=== PATIENT | male | born 1955 | race Caucasian/White ===

== ENCOUNTER 2020-11-04 14:57 | Inpatient (IN) | payer OTHER ==
--- NOTE | 2020-11-04 16:08 | RAD REPORT ---
EXAM DESCRIPTION: RAD - Chest Single View - 11/04/2020 3:39 pm CLINICAL HISTORY: DYSPNEA, weakness, loss of taste and smell, loss of appetite COMPARISON: Two view chest November 2019 TECHNIQUE: AP portable chest image was obtained 11/04/2020 3:39 pm . FINDINGS: Diaphragm is flattened. Patient has extensive cystic cavitary changes in each apex. Findin gs on the right are not substantially different. Air-filled cavity component has enlarged in the left apex since November 2019. There is now a dense area of opacification in the lateral mid left lung field. There is associated in terstitial stranding present. Heart size is normal. No measurable pleural effusion and no pneumothora x. No acute bony abnormality seen. No acute aortic findings suspected. IMPRESSION: Large consolidated mass density lateral mid left lung field. This is superimposed on sev ere fibro emphysematous changes to the chest. Community-acquired bacterial pneumonia or chest malignancy would be the primary considerations. Patte rn is not typical for a COVID-19 pneumonia.
[2020-11-04] MEDS ORDERED: PIPER/TAZO/NS 3.375gm 3.375 GM/100 ML BAG ONE (16:37)
[2020-11-04 16:44] LABS: Absolute Lymphocytes (CBC) 0.3 K/uL (0.7-4.9); Basophils % 0.2 % (0-1.3); Hematocrit 43.3 % (39.6-49.0); Lymphocytes % 1.7 % (15.3-44.8); MPV 7.6 fL (7.6-11.3); RBC Red Blood Cell Count 4.69 M/uL (4.33-5.43)
[2020-11-04 16:48] LABS: Protime INR 1.08
[2020-11-04 17:11] LABS: ALT/SGPT 8 U/L (12-78); AST/SGOT 19 U/L (15-37); Albumin 1.7 g/dL (3.4-5.0); Alkaline Phosphatase 79 U/L (45-117); BUN Blood Urea Nitrogen 16 mg/dL (7-18); Bicarbonate 28 mmol/L (21-32); Bilirubin Direct 0.3 mg/dL (0-0.2); Bilirubin Total 0.6 mg/dL (0.2-1.0); Ferritin 2228.2 ng/mL (26-388); Glucose Level 88 mg/dL (74-106); Potassium 3.4 mmol/L (3.5-5.1); Protein, Total 5.8 g/dL (6.4-8.2); Sodium Level 129 mmol/L (136-145); Troponin (Emerg Dept Use Only) 0.08 ng/mL (0.0-0.045)
--- NOTE | 2020-11-04 18:04 | RAD REPORT ---
EXAM DESCRIPTION: CT - Thorax W/ Con - 11/04/2020 5:35 pm CLINICAL HISTORY: dyspnea with significant lung changes COMPARISON: CT-LOW DOSE CT CHEST SCREENING dated 12/31/2013; CTANGIO CHEST dated 02/01/2010; Chest Singl e View dated 11/04/2020 TECHNIQUE: Dynamically enhanced 5 mm thick images of the chest were obtained during administration o f 100 mL non-ionic IV contrast. All CT scans are performed using dose optimization technique as appropriate and may include automated exposure control or mA/KV adjustment according to patient size. FINDINGS: Patient has a baseline of severe progressive emphysema change with numerous large air-fill ed cystic cavities in the upper lung west up to 11 cm in diameter. Thickened irregular septations a re present throughout. There is an air-fluid level and a large cystic cavity in the left apex. Bronch iectasis changes are present in the mid right lung field lung with a loculated pleural effusion new t he lateral mid and lower right lung field. There is a large irregular masslike consolidation in the m id and lower left lung field. Within this dense mass are numerous small cystic cavities or pneumatoce les. Margins are irregular. Enhancing vessels traverse through the mass. Opacification extends from t he lateral pleural margin to the perihilar region. In addition there are several ground-glass opacities present in the lower left lung field. No pneumot horax. No pleural based mass. No chest wall mass or abnormal axillary lymphadenopathy. Nonspecific small mediastinal lymph nodes are present without bulky mediastinal lymphadenopathy. Aorta and pulmonary arterial tree enhance normally. IMPRESSION: Large consolidated mass in the mid and lower left lung field with air bronchograms and n umerous pneumatoceles. Multiple small nonspecific mediastinal lymph nodes are present. Left lung field findings are superimposed on severe cystic emphysema changes with large thickly septa maureen cystic cavities in the upper lung west. No pulmonary emboli. A few scattered ground-glass opacities are present. The large left mass is suspicious for a bacterial pneumonia. This would be an atypical presentation f or COVID-19 pneumonia. Patient could have concurrent TB or fungal infections. Malignant etiology for the left lung mass is not excluded.
[2020-11-04] MEDS ORDERED: ENOXAPARIN 60 MG/0.6 ML SQ ONE (18:08)
[2020-11-04 19:04] LABS: SARS-COV-2 RT PCR NEGATIVE (NEGATIVE)
[2020-11-04] MEDS ORDERED: NA CHLORIDE 0.9% 2,000 ML ONE (19:07)
--- NOTE | 2020-11-04 20:07 | ER ---
Nurse's Notes [facility] Name: Moses Kern Age: 65 yrs Sex: Male : 1955 Arrival Date: 11/04/2020 Time: 15:11 Bed 7 Private MD: Diagnosis: Severe sepsis;Pneumonia due to other specified bacteria;Atrial fibrillation and flutter Presentation: 11/04 15:11 Chief complaint: Chief complaint: EMS states: called EMS due pt c/o of weakness. zb pt c/o of weakness, loss of taste and smell, nausea, loss of appetite, denies SOB or coughing. RR upper 20's. HR 112, saturation at 80's on arrival. sx first began on 28 of October after patient spending [place] with family. Coronavirus screen: Client presents with at least one sign or symptom that may indicate coronavirus-19. Standard/surgical mask placed on the client. Provider contacted for isolation considerations. Ebola Screen: No symptoms or risks identified at this time. Initial Sepsis Screen: Does the patient meet any 2 criteria? RR > 20 per min. HR > 90 bpm. Does the patient have a suspected source of infection? Yes: Other: possible covid. Risk Assessment: Do you want to hurt yourself or someone else? Patient reports no desire to harm self or others. Onset of symptoms was October 28, 2020. Care prior to arrival: Medication(s) given: Normal saline infusion, 250ml bolus. 15:11 Acuity: DEBRA 3 zb 15:11 Method Of Arrival: EMS: [facility] zb Historical: - Allergies: 15:27 No Known Allergies; zb - Home Meds: 15:26 Albuterol Inhl [Active]; Zinc Sulfate Oral [Active]; Vitamin C Oral [Active]; vitamin A zb Oral [Active]; Vitamin D Oral [Active]; - PMHx: 15:26 COPD; zb - PSHx: 15:26 None; zb - Immunization history:: Adult Immunizations up to date. - Social history:: Smoking status: Patient/guardian denies using tobacco, the patient reports quitting approximately 1 years ago. Screenin:27 Abuse screen: Denies threats or abuse. Denies injuries from another. Nutritional zb screening: No deficits noted. Tuberculosis screening: No symptoms or risk factors identified. Fall Risk None identified. Assessment: 15:45 General: Appears in no apparent distress. comfortable, Behavior is calm, cooperative, zb appropriate for age. Pain: Denies pain. Neuro: Level of Consciousness is awake, alert, obeys commands, Oriented to person, place, time, situation. Cardiovascular: Capillary refill < 3 seconds in bilateral fingers Patient's skin is warm and dry. Respiratory: Airway is patent Respiratory effort is even, unlabored, Respiratory pattern is tachypnea. Respiratory: Reports shortness of breath at rest Breath sounds are diminished bilaterally. the patient has mild shortness of breath. GI: Patient currently denies diarrhea. : No signs and/or symptoms were reported regarding the genitourinary system. EENT: No signs and/or symptoms were reported regarding the EENT system. Derm: Skin is intact, is healthy with good turgor, Skin is dry, Skin is normal, Skin temperature is warm. Musculoskeletal: Circulation, motion, and sensation intact. Capillary refill < 3 seconds, in bilateral fingers. Range of motion: intact in all extremities. 16:45 Reassessment: Patient appears in no apparent distress at this time. Patient and/or zb family updated on plan of care and expected duration. Pain level reassessed. Patient is alert, oriented x 3, equal unlabored respirations, skin warm/dry/pink. heart rated increased to 160's. provider notified. EKG performed. 16:53 Reassessment: pt heart rate increased to 167. ECP notified. EKG given and reviewed by malina Prater. 18:15 Reassessment: Patient appears in no apparent distress at this time. Patient and/or ca1 family updated on plan of care and expected duration. Pain level reassessed. Patient is alert, oriented x 3, equal unlabored respirations, skin warm/dry/pink. 19:09 Reassessment: Patient appears in no apparent distress at this time. Patient and/or ca1 family updated on plan of care and expected duration. Pain level reassessed. Patient is alert, oriented x 3, equal unlabored respirations, skin warm/dry/pink. 19:58 Reassessment: Patient appears in no apparent distress at this time. Patient and/or ca1 family updated on plan of care and expected duration. Pain level reassessed. Patient is alert, oriented x 3, equal unlabored respirations, skin warm/dry/pink. 20:45 Reassessment: Patient appears in no apparent distress at this time. Patient and/or ca1 family updated on plan of care and expected duration. Pain level reassessed. Patient is alert, oriented x 3, equal unlabored respirations, skin warm/dry/pink. 21:51 Reassessment: Patient appears in no apparent distress at this time. Patient and/or ca1 family updated on plan of care and expected duration. Pain level reassessed. Patient is alert, oriented x 3, equal unlabored respirations, skin warm/dry/pink. Vital Signs: 15:11 BP 95 / 65; Pulse 117; Resp 25; Temp 97.7; Pulse Ox 85% on R/A; Weight 63.5 kg; Height zb 5 ft. 11 in. (180.34 cm); Pain 0/10; 15:34 Pulse Ox 95% on R/A; zb 15:45 BP 93 / 75; Pulse 116; Resp 20; Pulse Ox 93% on R/A; zb 16:45 BP 102 / 72; Pulse 157; Resp 21; Pulse Ox 93% on R/A; zb 18:09 BP 89 / 57; Pulse 98; Resp 16 S; Pulse Ox 95% on R/A; ca1 18:35 BP 86 / 63; Pulse 100; Resp 18 S; Pulse Ox 96% on R/A; ca1 19:09 BP 88 / 65; Pulse 97; Resp 18 S; Pulse Ox 97% on R/A; ca1 19:32 BP 96 / 62; Pulse 103; Resp 18 S; Pulse Ox 98% on R/A; ca1 19:58 BP 91 / 65; Pulse 102; Resp 16 S; Pulse Ox 91% on R/A; ca1 20:30 BP 102 / 74; Pulse 104; Resp 18 S; Pulse Ox 92% on R/A; ca1 21:00 BP 100 / 74; Pulse 105; Resp 18 S; Pulse Ox 100% on R/A; ca1 21:30 BP 103 / 73; Pulse 106; Resp 20 S; Pulse Ox 99% on R/A; ca1 15:11 Body Mass Index 19.53 (63.50 kg, 180.34 cm) zb ED Course: 15:11 Patient arrived in ED. zb 15:15 Roszak, Ludwin, PA is PHCP. jr8 15:15 Jerome Whitt MD is Attending Physician. jr8 15:20 Triage completed. zb 15:33 Keshia Momin, RN is Primary Nurse. zb 15:39 CXR XRAY In Process Unspecified. EDMS 16:35 Strep Sent. zb 17:36 CT Chest W/ Con In Process Unspecified. EDMS 18:15 Patient has correct armband on for positive identification. Placed in gown. Bed in low ca1 position. Call light in reach. Side rails up X2. surveillance system monitor on. Pulse ox on. NIBP on. 18:15 Arm band placed on. ca1 18:54 Primary Nurse role handed off by Keshia Momin, SPENCER ca1 18:54 Vonnie Nova RN is Primary Nurse. ca1 20:04 Marek Aranda MD is Hospitalizing Provider. jr8 21:52 No provider procedures requiring assistance completed. Patient admitted, IV remains in ca1 place. 22:02 Report given to SPENCER Croft. ca1 Administered Medications: 17:01 Drug: Zosyn 3.375 grams Route: IVPB; Infused Over: 60 mins; Site: left forearm; zb 18:10 Follow up: Response: No adverse reaction; IV Status: Completed infusion; IV Intake: ca1 100ml 17:45 Drug: Lovenox 1 mg/kg Route: Sub-Q; Site: right lower abdomen; zb 18:30 Follow up: Response: No adverse reaction ca1 18:54 Drug: NS 0.9% (30 ml/kg) 30 ml/kg Route: IV; Rate: bolus; Site: right forearm; ca1 21:55 Follow up: Response: No adverse reaction; IV Status: Completed infusion; IV Intake: ca1 2000ml 19:59 Drug: NS 0.9% 1000 ml Route: IV; Rate: 100 ml/hr; Site: right forearm; ca1 21:55 Follow up: Response: No adverse reaction; IV Status: Infusion continued upon admission ca1 20:39 Drug: vancoMYCIN 1 grams Route: IVPB; Infused Over: 2 hrs; Site: right forearm; rv 21:55 Follow up: Response: No adverse reaction; IV Status: Infusion continued upon admission ca1 Intake: 18:10 IV: 100ml; Total: 100ml. ca1 21:55 IV: 2000ml; Total: 2100ml. ca1 Outcome: 20:07 Decision to Hospitalize by Provider. jr8 22:14 Admitted to Med/surg accompanied by tech, room 208, Other sbar, ekg ca1 22:14 Condition: good 22:14 Instructed on the need for admit. 22:32 Patient left the ED. rv Signatures: Dispatcher [employer] EDMS Ludwin Prater PA PA jr8 Felice Ware RN RN rv Vonnie Nova RN RN ca1 Keshia Momin RN RN zb Corrections: (The following items were deleted from the chart) 19:14 19:09 BP 88 / 65; Pulse 108bpm; Resp 18bpm; Spontaneous; Pulse Ox 97% RA; ca1 ca1 20:40 20:39 vancoMYCIN 1 grams IVPB in right antecubital over 2 hrs rv rv
--- NOTE | 2020-11-04 20:07 | EDPHYS ---
Physician Documentation [facility] Name: Moses Kern Age: 65 yrs Sex: Male : 1955 Arrival Date: 11/04/2020 Time: 15:11 Bed 7 Private MD: ED Physician Jerome Whitt HPI: 11/04 17:48 This 65 yrs old Male presents to ER via EMS with complaints of shortness of jr8 breath, fatiuge, weakness. 17:48 The patient has shortness of breath at rest. Onset: The symptoms/episode began/occurred jr8 gradually, 1 week(s) ago. Duration: The symptoms are continuous. The patient's shortness of breath is aggravated by light activity. Associated signs and symptoms: Pertinent positives: fatigue, weakness, decreased appetite . Severity of symptoms: At their worst the symptoms were moderate in the emergency department the symptoms are unchanged. The patient has not experienced similar symptoms in the past. Stated that he had negative COVID results 3 days ago but still getting worse . Historical: - Allergies: 15:27 No Known Allergies; zb - Home Meds: 15:26 Albuterol Inhl [Active]; Zinc Sulfate Oral [Active]; Vitamin C Oral [Active]; vitamin A zb Oral [Active]; Vitamin D Oral [Active]; - PMHx: 15:26 COPD; zb - PSHx: 15:26 None; zb - Immunization history:: Adult Immunizations up to date. - Social history:: Smoking status: Patient/guardian denies using tobacco, the patient reports quitting approximately 1 years ago. ROS: 17:48 Eyes: Negative for injury, pain, redness, and discharge, ENT: Negative for injury, jr8 pain, and discharge, Neck: Negative for injury, pain, and swelling, Cardiovascular: Negative for chest pain, palpitations, and edema, Abdomen/GI: Negative for abdominal pain, nausea, vomiting, diarrhea, and constipation, Back: Negative for injury and pain, MS/Extremity: Negative for injury and deformity, Skin: Negative for injury, rash, and discoloration, Neuro: Negative for headache, weakness, numbness, tingling, and seizure. 17:48 Constitutional: Positive for fatigue, malaise, poor PO intake. 17:48 Respiratory: Positive for dyspnea on exertion, shortness of breath. Exam: 17:48 Eyes: Pupils equal round and reactive to light, extra-ocular motions intact. Lids and jr8 lashes normal. Conjunctiva and sclera are non-icteric and not injected. Cornea within normal limits. Periorbital areas with no swelling, redness, or edema. ENT: Nares patent. No nasal discharge, no septal abnormalities noted. Tympanic membranes are normal and external auditory canals are clear. Oropharynx with no redness, swelling, or masses, exudates, or evidence of obstruction, uvula midline. Mucous membranes moist. Neck: Trachea midline, no thyromegaly or masses palpated, and no cervical lymphadenopathy. Supple, full range of motion without nuchal rigidity, or vertebral point tenderness. No Meningismus. Abdomen/GI: Soft, non-tender, with normal bowel sounds. No distension or tympany. No guarding or rebound. No evidence of tenderness throughout. Back: No spinal tenderness. No costovertebral tenderness. Full range of motion. Skin: Warm, dry with normal turgor. Normal color with no rashes, no lesions, and no evidence of cellulitis. MS/ Extremity: Pulses equal, no cyanosis. Neurovascular intact. Full, normal range of motion. Neuro: Awake and alert, GCS 15, oriented to person, place, time, and situation. Cranial nerves II-XII grossly intact. Motor strength 5/5 in all extremities. Sensory grossly intact. Cerebellar exam normal. Normal gait. 17:48 Cardiovascular: Rate: tachycardic, Rhythm: regular, Pulses: Pulses are 2+ in right radial artery and left radial artery. Heart sounds: normal, normal S1and S2, no S3 or S4, no murmur, no rub, no gallop, Edema: is not appreciated. 17:48 Respiratory: mild respiratory distress is noted, Respirations: tachypnea, Breath sounds: decreased breath sounds, that are moderate, are scattered. Vital Signs: 15:11 BP 95 / 65; Pulse 117; Resp 25; Temp 97.7; Pulse Ox 85% on R/A; Weight 63.5 kg; Height zb 5 ft. 11 in. (180.34 cm); Pain 0/10; 15:34 Pulse Ox 95% on R/A; zb 15:45 BP 93 / 75; Pulse 116; Resp 20; Pulse Ox 93% on R/A; zb 16:45 BP 102 / 72; Pulse 157; Resp 21; Pulse Ox 93% on R/A; zb 18:09 BP 89 / 57; Pulse 98; Resp 16 S; Pulse Ox 95% on R/A; ca1 18:35 BP 86 / 63; Pulse 100; Resp 18 S; Pulse Ox 96% on R/A; ca1 19:09 BP 88 / 65; Pulse 97; Resp 18 S; Pulse Ox 97% on R/A; ca1 19:32 BP 96 / 62; Pulse 103; Resp 18 S; Pulse Ox 98% on R/A; ca1 19:58 BP 91 / 65; Pulse 102; Resp 16 S; Pulse Ox 91% on R/A; ca1 20:30 BP 102 / 74; Pulse 104; Resp 18 S; Pulse Ox 92% on R/A; ca1 21:00 BP 100 / 74; Pulse 105; Resp 18 S; Pulse Ox 100% on R/A; ca1 21:30 BP 103 / 73; Pulse 106; Resp 20 S; Pulse Ox 99% on R/A; ca1 15:11 Body Mass Index 19.53 (63.50 kg, 180.34 cm) zb MDM: 15:15 Patient medically screened. jr8 17:48 Data reviewed: vital signs, nurses notes, lab test result(s), EKG, radiologic studies, [facility] CT scan, plain films. Data interpreted: Pulse oximetry: on room air is 85 %. Interpretation: hypoxia. Counseling: I had a detailed discussion with the patient and/or guardian regarding: the historical points, exam findings, and any diagnostic results supporting the discharge/admit diagnosis, lab results, radiology results, the need for further work-up and treatment in the hospital. 11/04 15:17 Order name: Strep 8 11/04 15:17 Order name: Blood Culture Adult (2) 11/04 15:17 Order name: BMP; Complete Time: 17:23 8 11/04 15:17 Order name: C-Reactive Protein; Complete Time: 17:23 11/04 15:17 Order name: CBC with Diff 11/04 15:17 Order name: Ferritin; Complete Time: 17:23 8 11/04 15:17 Order name: Lactate; Complete Time: 16:59 11/04 15:17 Order name: LFT's; Complete Time: 17:23 8 11/04 15:17 Order name: Procalcitonin; Complete Time: 17:23 8 11/04 15:17 Order name: PT-INR; Complete Time: 16:59 8 11/04 15:17 Order name: Ptt, Activated; Complete Time: 16:59 8 11/04 15:17 Order name: Troponin (emerg Dept Use Only); Complete Time: 17:23 8 11/04 15:17 Order name: Urine Microscopic Only [facility] 11/04 15:17 Order name: CXR XRAY; Complete Time: 16:40 8 11/04 15:17 Order name: EKG; Complete Time: 15:18 [facility] 11/04 15:18 Order name: Group A Streptococcus Rapid Sc; Complete Time: 17:23 [facility] 11/04 15:48 Order name: CT Chest W/ Con; Complete Time: 18:16 8 11/04 16:52 Order name: EKG; Complete Time: 16:53 em1 11/04 17:19 Order name: Throat Culture [facility] 11/04 19:04 Order name: COVID-19/FLU A+B; Complete Time: 19:09 EDMS 11/04 20:07 Order name: Sputum Culture [facility] 11/04 20:47 Order name: CBC Smear Scan [facility] 11/04 15:17 Order name: Cardiac monitoring; Complete Time: 15:33 8 11/04 15:17 Order name: Document PUI#; Complete Time: 16:35 8 11/04 15:17 Order name: Droplet/Contact Precautions; Complete Time: 15:33 8 11/04 15:17 Order name: EKG - Nurse/Tech; Complete Time: 16:35 8 11/04 15:17 Order name: IV Start; Complete Time: 15:33 8 11/04 15:17 Order name: Labs collected and sent; Complete Time: 16:35 8 11/04 15:17 Order name: Notify Health Dept [phone]/ ; Complete Time: 16:35 8 11/04 15:17 Order name: O2 Per Protocol; Complete Time: 15:33 8 11/04 15:17 Order name: O2 Sat Monitoring; Complete Time: 15:33 Administered Medications: 17:01 Drug: Zosyn 3.375 grams Route: IVPB; Infused Over: 60 mins; Site: left forearm; zb 18:10 Follow up: Response: No adverse reaction; IV Status: Completed infusion; IV Intake: ca1 100ml 17:45 Drug: Lovenox 1 mg/kg Route: Sub-Q; Site: right lower abdomen; zb 18:30 Follow up: Response: No adverse reaction ca1 18:54 Drug: NS 0.9% (30 ml/kg) 30 ml/kg Route: IV; Rate: bolus; Site: right forearm; ca1 21:55 Follow up: Response: No adverse reaction; IV Status: Completed infusion; IV Intake: ca1 2000ml 19:59 Drug: NS 0.9% 1000 ml Route: IV; Rate: 100 ml/hr; Site: right forearm; ca1 21:55 Follow up: Response: No adverse reaction; IV Status: Infusion continued upon admission ca1 20:39 Drug: vancoMYCIN 1 grams Route: IVPB; Infused Over: 2 hrs; Site: right forearm; rv 21:55 Follow up: Response: No adverse reaction; IV Status: Infusion continued upon admission ca1 Disposition: 11/05 09:18 Co-signature as Attending Physician, Jerome Whitt MD. rn Disposition: 11/04/20 20:07 Hospitalization ordered by Marek Aranda for Inpatient Admission. Preliminary diagnosis are Severe sepsis, Pneumonia due to other specified bacteria, Atrial fibrillation and flutter. - Bed requested for Telemetry/MedSurg (Inpatient). - Status is Inpatient Admission. rv - Condition is Fair. - Problem is new. - Symptoms have improved. Signatures: Dispatcher [employer] EDMS Jerome Whitt MD MD rn Roszak, Josh, PA PA jr8 Shellie Byers RN RN cg Felice Ware RN RN rv Acob, Cheryl, RN RN ca1 Keshia Momin RN RN lopezb Corrections: (The following items were deleted from the chart) 11/04 18:20 15:18 CORONAVIRUS+MR.LAB.BRZ ordered. EDMS EDMS 18:20 15:18 Influenza Screen (A \T\ B)+BA.LAB.BRZ ordered. EDMS EDMS 21:18 20:07 Hospitalization Ordered by Marek Aranda MD for Inpatient Admission. Preliminary cg diagnosis is Severe sepsis; Pneumonia due to other specified bacteria; Atrial fibrillation and flutter. Bed requested for Telemetry/MedSurg (Inpatient). Status is Inpatient Admission. Condition is Fair. Problem is new. Symptoms have improved. jr8 21:53 15:17 [place] ordered. jr8 ca1 22:32 21:18 11/04/2020 20:07 Hospitalization Ordered by Marek Aranda MD for Inpatient rv Admission. Preliminary diagnosis is Severe sepsis; Pneumonia due to other specified bacteria; Atrial fibrillation and flutter. Bed requested for Telemetry/MedSurg (Inpatient). Status is Inpatient Admission. Condition is Fair. Problem is new. Symptoms have improved. cg
[2020-11-04] MEDS ORDERED: NA CHLORIDE 0.9% 1,000 ML ONE (20:13)
[2020-11-04] MEDS ORDERED: NA CHLORIDE 0.9% 250 ML ONE (20:44)
[2020-11-04] MEDS ORDERED: VANCOMYCIN 1 GM/VIAL ONE (20:44)
[2020-11-04 20:46] LABS: Blood Morphology Comment NOT SEEN (NOT SEEN); Platelet Estimate ADEQ; White Blood Cell Scan OK (OK)
--- NOTE | 2020-11-04 22:30 | EKG ---
Test Date: 2020-11-04 Test Time: 16:47:45 Rehabilitation Therapy Aide: DARRYL MEASUREMENT RESULTS: Intervals: Rate: 167 RI: QRSD: 80 QT: 280 QTc: 467 [place]: P: RI: QRS: 69 T: 58 INTERPRETIVE STATEMENTS: Atrial fibrillation with rapid ventricular response T wave abnormality, consider inferior ischemia Abnormal ECG Compared to ECG 11/04/2020 15:57:33 T-wave abnormality now present Possible ischemia now present Sinus tachycardia no longer present Electronically Signed On 11-04-20 22:29:18 HISTOLOGIC AIDE by Anastacio Rogers
--- NOTE | 2020-11-04 22:30 | EKG ---
Test Date: 2020-11-04 Test Time: 15:57:33 Film Producer: DARRYL MEASUREMENT RESULTS: Intervals: Rate: 114 ME: 168 QRSD: 82 QT: 342 QTc: 471 [place]: P: 24 ME: 168 QRS: 70 T: 41 INTERPRETIVE STATEMENTS: Sinus tachycardia Otherwise normal ECG No previous ECG available for comparison Electronically Signed On 11-04-20 22:29:20 [employer]ELOP[employer] by Anastacio Rogers
[2020-11-04] MEDS ORDERED: ONDANSETRON 4 MG/2 ML VIAL IV PRN (22:54)
[2020-11-04] MEDS ORDERED: ALBUTEROL 2.5 MG/3 ML NEB SOL NEB PRN (22:54)
[2020-11-04] MEDS ORDERED: ACETAMINOPHEN 500 MG TAB PO PRN (22:54)
[2020-11-04] MEDS ORDERED: MORPHINE 4 MG/ML SYR IV PRN (22:54)
[2020-11-04] MEDS: NA CHLORIDE 0.9% 1,000 ML IV SCH (22:54)
[2020-11-04 23:12] LABS: Urine Bacteria <20 /HPF (NONE SEEN); Urine RBC NONE SEEN /HPF (NONE SEEN)
[2020-11-04 23:39] VITALS: BMI 16.7
[2020-11-05] MEDS ORDERED: PIPER/TAZO/NS 3.375gm 3.375 GM/100 ML BAG ONE (02:15)
[2020-11-05] MEDS: PIPER/TAZO/NS 3.375gm 3.375 GM/100 ML BAG IVPB SCH ×3 (02:20→16:07)
[2020-11-05 06:48] LABS: Absolute Lymphocytes (CBC) 0.2 K/uL (0.7-4.9); Basophils % 0.3 % (0-1.3); Hematocrit 39.8 % (39.6-49.0); Lymphocytes % 1.2 % (15.3-44.8); MPV 7.6 fL (7.6-11.3); RBC Red Blood Cell Count 4.22 M/uL (4.33-5.43)
[2020-11-05 07:18] LABS: BUN Blood Urea Nitrogen 13 mg/dL (7-18); Bicarbonate 23 mmol/L (21-32); Glucose Level 77 mg/dL (74-106); Potassium 3.3 mmol/L (3.5-5.1); Sodium Level 134 mmol/L (136-145)
[2020-11-05] MEDS: NA CHLORIDE 0.9% 1,000 ML IV SCH ×3 (07:36→18:54)
[2020-11-05] MEDS ORDERED: VANCOMYCIN 1.25 GM in NA CHLORIDE 0.9% 250 ML IVPB SCH (09:00)
[2020-11-05] MEDS: Fluticasone/Umeclidin/Vilanter (Trelegy Ellipta) 100-62.5-25 Blst.W.Dev IH SCH (09:00)
[2020-11-05] MEDS ORDERED: MORPHINE 2 MG/ML SYR IV PRN (11:00)
[2020-11-05] MEDS ORDERED: POTASSIUM CL SA 10 MEQ TAB PO ONE (14:00)
[2020-11-05] MEDS: RIVAROXABAN 20 MG TABLET PO SCH (16:08)
[2020-11-05] MEDS ORDERED: ENOXAPARIN 40 MG/0.4 ML SQ SCH (17:00)
--- NOTE | 2020-11-05 20:06 | P.HP ---
Certification for Inpatient Patient admitted to: Inpatient With expected LOS: >2 Midnights Practitioner: I am a practitioner with admitting privileges, knowledge of patient current condition, hospital course, and medical plan of care. Services: Services provided to patient in accordance with Admission requirements found in Title 42 Section 412.3 of the Code of Federal Regulations Patient History Date of Service: 11/05/20 Reason for admission: WEAK, FATIGUE History of Present Illness: BRITTANY CALLED ME YESTERDAY HE WAS WEAK AND NOT ABLE TO STAY AWAKE. I ASKED HIM TO COME TO ER HE MAY HAVE INFECTION AND LOW BP. HE DID HAVE A LARGE L SIDE PNEUMONIA, COPD AND HYPOTENSION. HE WAS GIVEN IV FLUIDS TO BRING UP BP IN ER AND I ASKED THEM TO GIVE DUAL COVERAGE WITH VANCOMYCIN AND ZOSYN. HE HAS IMPROVED. HE DID NOT SLEEP AT NIGHT. HE HAD SHORT RUN OF A FIB AT NIGHT AND HE IS ALREADY ON ANTICOAGULATION, HE IS BACK IN SINUS RHYTHM. Allergies No Known Allergies Allergy (Unverified 11/04/20 22:46) Home Medications: Fluticasone/Umeclidin/Vilanter [Trelegy Ellipta 100-62.5-25] 1 puff IH DAILY 11/05/20 - Past Medical/Surgical History Has patient received pneumonia vaccine in the past: Yes Diabetic: No -: COPD - Social History Smoking Status: Former smoker Alcohol use: Yes CD- Drugs: No Caffeine use: No Place of Residence: Home Review of Systems 10-point ROS is otherwise unremarkable General: Weakness, Malaise Physical Examination - Vital Signs Temperature: 98.6 F Blood Pressure: 113/57 Pulse: 119 Respirations: 20 Pulse Ox (%): 91 - Physical Exam General: Oriented x3, Cachectic (NO CHANGES. ), Moderate distress HEENT: Atraumatic, PERRLA, Mucous membr. moist/pink, EOMI, Sclerae nonicteric Neck: Supple, 2+ carotid pulse no bruit, No LAD, Without JVD or thyroid abnormality Respiratory: Clear to auscultation bilaterally, Normal air movement Cardiovascular: Regular rate/rhythm, Normal S1 S2 Gastrointestinal: Normal bowel sounds, No tenderness Musculoskeletal: No tenderness Integumentary: No rashes Neurological: Normal gait, Normal speech, Normal strength at 5/5 x4 extr, Normal tone, Normal affect Lymphatics: No axilla or inguinal lymphadenopathy - Studies Laboratory Data (last 24 hrs) 11/04/20 16:24: WBC 17.9 H, Hgb 14.3, Hct 43.3, Plt Count 368 Microbiology Data (last 24 hrs): 11/04/20 20:07 Sputum Sputum Gram Stain - Final 11/04/20 15:48 Throat Group A Streptococcus Rapid Screen - Final Assessment and Plan - Problems (Diagnosis) (1) Bacterial pneumonia Current Visit: Yes Status: Acute Plan: IV VANCOMYCIN AND ZOSYN. SPUTUM CULTURE WILL DC VANCOMYCIN AFTER CONFIRMATION OF CULTURE. (2) COPD (chronic obstructive pulmonary disease) Current Visit: Yes Status: Chronic Plan: NEBULIZER WILL AVOID STEROIDS HE IS NOT SHOWING ANY EXACERBATION. 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 WILL REDO X RAY IN A MONTH (4) Transient atrial fibrillation Current Visit: Yes Status: Acute Plan: XARELTO PO RATE CONTROL CURRENTLY SINUS TACHYCARDIA FROM SEPSIS. (5) Septic shock Current Visit: Yes Status: Acute Plan: ABOVE FOLLOW PROTOCOL IV FLUIDS. CHANGE TO RL. - Advance Directives Does patient have a Living Will: Yes Does patient have a Durable POA for Healthcare: No
[2020-11-05] MEDS: Ringers Lactate 1,000 ML IV SCH (21:13)
[2020-11-05] MEDS: VANCOMYCIN/NS 1 gm 1 GM/250 ML BAG IVPB SCH (21:14)
[2020-11-05] MEDS ORDERED: POTASSIUM 25 MEQ EFFERV TAB PO ONE (21:30)
[2020-11-06] MEDS: PIPER/TAZO/NS 3.375gm 3.375 GM/100 ML BAG IVPB SCH ×3 (01:18→16:43)
[2020-11-06 06:32] LABS: BUN Blood Urea Nitrogen 9 mg/dL (7-18); Bicarbonate 23 mmol/L (21-32); Glucose Level 71 mg/dL (74-106); Phosphorus 2.6 mg/dL (2.5-4.9); Potassium 3.4 mmol/L (3.5-5.1); Sodium Level 133 mmol/L (136-145)
--- NOTE | 2020-11-06 07:27 | EKG ---
Test Date: 2020-11-05 Test Time: 02:57:16 Roentgenologist: RT MEASUREMENT RESULTS: Intervals: Rate: 150 [place]: QRSD: 100 QT: 286 QTc: 451 [place]: P: NV: QRS: 55 T: 19 INTERPRETIVE STATEMENTS: Supraventricular tachycardia Cannot rule out Inferior infarct, age undetermined Abnormal ECG Compared to ECG 11/04/2020 16:47:45 Myocardial infarct finding now present Atrial fibrillation no longer present T-wave abnormality no longer present Possible ischemia no longer present Electronically Signed On 11-06-20 07:24:18 PRIVATE HOUSEHOLD WORKER by Anastacio Rogers
[2020-11-06] MEDS ORDERED: POTASSIUM CL SA 10 MEQ TAB PO ONE ×2 (08:00→21:00)
[2020-11-06] MEDS: VANCOMYCIN/NS 1 gm 1 GM/250 ML BAG IVPB SCH (09:00)
[2020-11-06] MEDS: Fluticasone/Umeclidin/Vilanter (Trelegy Ellipta) 100-62.5-25 Blst.W.Dev IH SCH (09:00)
--- NOTE | 2020-11-06 09:24 | CON ---
Date of Consultation: 11/06/2020 Reason For Consultation: Paroxysmal atrial flutter. History Of Present Illness: Mr. Kern is a 65-year-old male with history of COPD, who was admitted with sepsis and a large lateral left mid lung pneumonia. He was hypokalemic, hyponatremic with a wh ite count of 18,000, had a CRP of 145. He has a very elevated ferritin. Troponin was 0.08. He was noted to be in atrial flutter/fibrillation that is resolved. He is back in sinus tachycardia right n ow. Patient is on Xarelto already because of his arrhythmia. Echocardiogram is pending. TSH is pen ding. Patient is not a candidate for beta blockade because of hypotension. He has sinus tach second moris to sepsis and pneumonia. I could not get Mr. Kern to wake up very well this morning. He woul d wake up and go back to sleep, but he does not seem to have any complaint. Past Medical History: As stated above. Allergies: NONE. Review of Systems: Negative. Social History: Positive for tobacco. Family History: Negative. Medications: At home include only inhalers. Physical Examination: Vital Signs: Noted. He was in sinus tach. Afebrile. HEENT: Negative. Neck: Supple without any bruit, lymphadenopathy, JVD, or thyromegaly. Chest: Revealed decreased breath sounds bilaterally. Cardiac: Revealed sinus tach without any murmurs, gallops, or rubs. Abdomen: Benign. Extremities: Revealed no clubbing, cyanosis, or edema. Diagnostic Data: As stated earlier. Impression And Plan: 1.Paroxysmal atrial fibrillation, probably secondary to sepsis. He is now in sinus tach. I agree w ith Xarelto. No need for beta-blockers at this point. Echocardiogram is pending. TSH should be luis cked. We will continue to follow. We will see what the echo shows. 2.His other problems include elevated troponin secondary to demand ischemia. 3.Elevated white count secondary to left base pneumonia. 4.Hyponatremia and hypokalemia secondary to dehydration. I will continue antibiotics. Continue to hydrate well. Continue Xarelto. We will see what the echo and the PSA show before making further de cisions. NB/MODL Voice ID: [id number] Report ID: [id number]
[2020-11-06] MEDS: JUVEN PACKET PO SCH ×2 (10:07→21:01)
[2020-11-06] MEDS: Ringers Lactate 1,000 ML IV SCH ×2 (12:52→17:00)
--- NOTE | 2020-11-06 13:41 | P.PN ---
Subjective Date of Service: 11/06/20 Chief Complaint: WEAK, FATIGUE Subjective: Improving HE IS LOOKING AND FEELING A LOT BETTER. DENIES CHEST PAIN. Review of Systems 10-point ROS is otherwise unremarkable General: Weakness, Malaise Respiratory: Shortness of Breath Physical Examination - Vital Signs Temperature: 99.3 F Blood Pressure: 113/57 Pulse: 116 Respirations: 18 Pulse Ox (%): 96 - Physical Exam General: Mild distress, Moderate distress HEENT: Atraumatic, PERRLA, EOMI Neck: Supple, JVD not distended Respiratory: Diminished, Crackles/rales (BASAL RALES, LOWER LOBE RALES AND BRONCHIAL BREATHING.) Cardiovascular: Regular rate/rhythm, Normal S1 S2 Gastrointestinal: Normal bowel sounds, No tenderness Musculoskeletal: No tenderness Integumentary: No rashes Neurological: Normal speech, Normal tone, Normal affect Lymphatics: No axilla or inguinal lymphadenopathy - Studies Microbiology Data (last 24 hrs): 11/04/20 20:07 Sputum Sputum Gram Stain - Final 11/04/20 15:48 Throat Culture & Sensitivity - Final NORMAL UPPER RESPIRATORY DILEEP GROWN. Medications List Reviewed: Yes Assessment And Plan - Current Problems (Diagnosis) (1) Bacterial pneumonia Current Visit: Yes Status: Acute Plan: IV VANCOMYCIN AND ZOSYN. SPUTUM CULTURE WILL DC VANCOMYCIN AFTER CONFIRMATION OF CULTURE. IV ABX HE IS HIGH RISK AND SO HAS DUAL COVERAGE. (2) COPD (chronic obstructive pulmonary disease) Current Visit: Yes Status: Chronic Plan: NEBULIZER WILL AVOID STEROIDS HE IS NOT SHOWING ANY EXACERBATION. 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 WILL REDO X RAY IN A MONTH (4) Transient atrial fibrillation Current Visit: Yes Status: Acute Plan: XARELTO PO RATE CONTROL CURRENTLY SINUS TACHYCARDIA FROM SEPSIS. (5) Septic shock Current Visit: Yes Status: Acute Plan: ABOVE FOLLOW PROTOCOL IV FLUIDS. CHANGE TO RL.
[2020-11-06] MEDS: RIVAROXABAN 20 MG TABLET PO SCH (16:43)
[2020-11-06] MEDS ORDERED: NA CHLORIDE 0.9% 500 ML IV ONE (18:19)
[2020-11-06] MEDS: LACTOBACILLUS/ACIDOPHILUS TAB PO SCH (21:00)
[2020-11-06] MEDS ORDERED: VANCOMYCIN 1.25 GM in NA CHLORIDE 0.9% 250 ML IVPB SCH (21:00)
[2020-11-07] MEDS: PIPER/TAZO/NS 3.375gm 3.375 GM/100 ML BAG IVPB SCH (00:12)
[2020-11-07] MEDS ORDERED: NA CHLORIDE 0.9% 500 ML IV ONE ×2 (00:20→05:00)
[2020-11-07] MEDS: Ringers Lactate 1,000 ML IV SCH ×2 (03:00→07:17)
[2020-11-07] MEDS: LACTOBACILLUS/ACIDOPHILUS TAB PO SCH ×3 (04:00→20:00)
[2020-11-07] MEDS ORDERED: VANCOMYCIN/NS 1 gm 1 GM/250 ML BAG IVPB SCH (05:00)
[2020-11-07] MEDS: ALBUTEROL 2.5 MG/3 ML NEB SOL NEB SCH ×2 (05:05→08:00)
[2020-11-07] MEDS: IPRATROPIUM BROM 0.5MG/2.5ML NEB PRN ×2 (05:05→10:20)
[2020-11-07] MEDS ORDERED: Meropenem 1000 MG/VIAL IV SCH (05:09)
[2020-11-07] MEDS ORDERED: NA CHLORIDE 0.9% 500 ML ONE ×2 (05:16→20:58)
[2020-11-07] MEDS ORDERED: NA CHLORIDE 0.9% 0 ML ONE (05:28)
[2020-11-07] MEDS ORDERED: Meropenem 1 GM/100 ML BAG IV SCH (05:30)
[2020-11-07 05:56] LABS: Absolute Lymphocytes (CBC) 0.4 K/uL (0.7-4.9); Basophils % 0.4 % (0-1.3); Hematocrit 39.4 % (39.6-49.0); Lymphocytes % 2.1 % (15.3-44.8); MPV 7.4 fL (7.6-11.3); RBC Red Blood Cell Count 4.14 M/uL (4.33-5.43)
[2020-11-07 06:15] LABS: BUN Blood Urea Nitrogen 16 mg/dL (7-18); Bicarbonate 22 mmol/L (21-32); Glucose Level 91 mg/dL (74-106); Magnesium 1.6 mg/dL (1.8-2.4); Potassium 3.8 mmol/L (3.5-5.1); Sodium Level 137 mmol/L (136-145)
[2020-11-07] MEDS ORDERED: NOREPINEPHRINE 4mg/D5W 250mL 4 MG/250 ML BAG IV ONE (06:29)
[2020-11-07] MEDS ORDERED: LEVALBUTEROL 0.63 MG/3 ML NEB NEB PRN (06:51)
[2020-11-07] MEDS ORDERED: Ringers Lactate 1,000 ML IV ONE (07:06)
[2020-11-07] MEDS: NOREPINEPHRINE 4 MG in D5W 250 ML IV PRN ×3 (07:13→20:30)
[2020-11-07] MEDS ORDERED: COSYNTROPIN 0.25 MG VIAL IV SCH (08:00)
[2020-11-07] MEDS: JUVEN PACKET PO SCH (08:26)
[2020-11-07] MEDS: Fluticasone/Umeclidin/Vilanter (Trelegy Ellipta) 100-62.5-25 Blst.W.Dev IH SCH (08:26)
--- NOTE | 2020-11-07 08:43 | RAD REPORT ---
EXAM DESCRIPTION: [facility] Single View11/07/2020 8:28 am CLINICAL HISTORY: Shortness of breath COMPARISON: October 20192020 FINDINGS: Bilateral cavitary masses are unchanged Left lung consolidation without significant change Heart is normal size
[2020-11-07] MEDS: Meropenem 1,000 MG in NA CHLORIDE 0.9% 100 ML IV SCH ×2 (09:31→17:20)
[2020-11-07] MEDS ORDERED: ALBUTEROL 2.5 MG/3 ML NEB SOL ONE (09:51)
[2020-11-07] MEDS ORDERED: IPRATROPIUM BROM 0.5MG/2.5ML ONE (09:51)
[2020-11-07] MEDS ORDERED: LEVALBUTEROL 0.63 MG/3 ML NEB ONE (10:28)
[2020-11-07 10:40] LABS: Arterial Blood Carboxyhemoglob 1.4 % (0-1.5); Blood Gas Oxyhemoglobin 87.8 % (94-97); Blood O2 Saturation 89.7 % (92-98.5)
[2020-11-07] MEDS ORDERED: AMIODARONE HCL 150 MG in D5W 100 ML IV STA (10:41)
[2020-11-07] MEDS ORDERED: AMIODARONE HCL 450 MG in D5W 241 ML IV SCH (11:00)
[2020-11-07 11:08] LABS: C.diff Antigen/Toxin Ag neg : Tox neg (NEG : NEG)
--- NOTE | 2020-11-07 11:28 | EKG ---
Test Date: 2020-11-07 Test Time: 10:58:22 Medical Superintendent: CYRUS MEASUREMENT RESULTS: Intervals: Rate: 120 HI: 168 QRSD: 80 QT: 290 QTc: 409 [place]: P: 69 HI: 168 QRS: 63 T: 38 INTERPRETIVE STATEMENTS: Sinus tachycardia Low voltage QRS Septal infarct, age undetermined Abnormal ECG Compared to ECG 11/05/2020 02:57:16 Low QRS voltage now present Supraventricular tachycardia no longer present Myocardial infarct finding still present Electronically Signed On 11-07-20 11:27:12 OVERSIZE LOAD PILOT ESCORT by Anastacio Rogers
[2020-11-07] MEDS: HYDROCORTISONE SUC 100 MG INJ IV SCH ×3 (11:54→23:54)
[2020-11-07] MEDS ORDERED: WATER FOR INJ,STERILE 10 ML ONE ×2 (12:02→17:23)
[2020-11-07] MEDS ORDERED: HYDROCORTISONE SUC 100 MG INJ ONE ×2 (12:02→17:23)
[2020-11-07] MEDS: VANCOMYCIN/NS 1 gm 1 GM/250 ML BAG IVPB SCH ×2 (12:05→23:00)
[2020-11-07 12:10] LABS: Blood Morphology Comment NOT SEEN (NOT SEEN); Platelet Estimate INCR
--- NOTE | 2020-11-07 12:17 | P.CNS ---
Date of Consult: 11/07/20 Reason for Consult: Septic shock Chief Complaint: WEAK, FATIGUE History of Present Illness: Patient is 65 years of age admitted from the home as been sick for the past 5 days complaining of weakness shortness of breath he was came in with hypotension as transfer to the ICU has a significant pneumonia on the left side also has severe COPD Allergies No Known Allergies Allergy (Unverified 11/04/20 22:46) Home Medications: Fluticasone/Umeclidin/Vilanter [Trelegy Ellipta 100-62.5-25] 1 puff IH DAILY 11/05/20 - Past Medical/Surgical History Diabetic: No -: COPD - Social History Alcohol use: Yes CD- Drugs: No Caffeine use: No Place of Residence: Home Review of Systems General: Weakness Respiratory: Cough, Shortness of Breath Physical Examination Temp Pulse Resp BP Pulse Ox 96.8 F 109 H 30 H 91/68 97 11/07/20 08:00 11/07/20 11:45 11/07/20 11:45 11/07/20 11:45 11/07/20 11:45 General: Alert, Moderate distress Respiratory: Diminished, Crackles/rales (Crackles on the left side) Cardiovascular: No edema, Regular rate/rhythm Gastrointestinal: Normal bowel sounds, Soft and benign Musculoskeletal: No clubbing, No swelling Integumentary: No rashes, No breakdown - Problems (1) Septic shock Current Visit: Yes Status: Acute Plan: Patient is 65 years of age admitted with septic shock he has pneumonia on the left side labs blood gases all reviewed is mildly acidotic white count is elevated continue with fluid boluses patient is on Levophed patient appears to have a necrotic pneumonia with cystic areas normal renal function more likely he has severe pneumococcal pneumonia due to rapid onset he also developed atrial flutter and is on amiodarone patient is fully anti coagulated
--- NOTE | 2020-11-07 13:10 | P.PN ---
Subjective Date of Service: 11/07/20 Chief Complaint: LOW BP LAST NIGHT. Subjective: Improving HE IS LOOKING AND FEELING A LOT BETTER. DENIES CHEST PAIN. I WAS CALLED BY NURSES ABOUT LOW BP AND DIARRHEA. C DIFF IS PENDING. WE CHANGED ABX FROM ZOSYN TO MERREM AND VANCOMYCIN. IV FLUID BOLUSES 3 WERE GIVEN WITH NO HELP. ICU WAS REOPENED AND HE WAS TRANSFERRED TO ICU, LEVOPHED DRIP STRATED. HE CONTINUED TO HAVE TACHYCARDIA THAT WAS SINUS TACHY BUT AT TIMES A FIB. DR. RICO PUT HIM ON AMIODARONE DRIP AND HIS HR HAS STABLIZED. Review of Systems 10-point ROS is otherwise unremarkable General: Weakness, Malaise Respiratory: Cough, Shortness of Breath Physical Examination - Vital Signs Temperature: 98 F Blood Pressure: 90/66 Pulse: 108 Respirations: 26 Pulse Ox (%): 95 - Physical Exam General: Alert, Cachectic, Moderate distress HEENT: Atraumatic, PERRLA, EOMI Neck: Supple, JVD not distended Respiratory: Rhonchi/gurgles Cardiovascular: Regular rate/rhythm, Normal S1 S2 Gastrointestinal: Normal bowel sounds, No tenderness Musculoskeletal: No tenderness Integumentary: No rashes Neurological: Normal speech, Normal tone, Normal affect Lymphatics: No axilla or inguinal lymphadenopathy - Studies Microbiology Data (last 24 hrs): 11/04/20 20:07 Sputum Sputum Gram Stain - Final 11/04/20 15:48 Throat Culture & Sensitivity - Final NORMAL UPPER RESPIRATORY DILEEP GROWN. Medications List Reviewed: Yes Assessment And Plan - Current Problems (Diagnosis) (1) Bacterial pneumonia Current Visit: Yes Status: Acute Plan: IV VANCOMYCIN AND ZOSYN. SPUTUM CULTURE WILL DC VANCOMYCIN AFTER CONFIRMATION OF CULTURE. IV ABX HE IS HIGH RISK AND SO HAS DUAL COVERAGE. SPUTUM C S PENDING. MERREM ZOSYN DID NOT WORK. PROGNOSIS GUARDED. CALLED . (2) COPD (chronic obstructive pulmonary disease) Current Visit: Yes Status: Chronic Plan: NEBULIZER WILL AVOID STEROIDS HE IS NOT SHOWING ANY EXACERBATION. 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 WILL REDO X RAY IN A MONTH (4) Transient atrial fibrillation Current Visit: Yes Status: Acute Plan: XARELTO PO RATE CONTROL CURRENTLY SINUS TACHYCARDIA FROM SEPSIS. AMIODARONE DROP AND BP SUPPORT FOR LOW BP WITH LEVOPHED. (5) Septic shock Current Visit: Yes Status: Acute Plan: ABOVE FOLLOW PROTOCOL IV FLUIDS. CHANGE TO RL.
[2020-11-07] MEDS: LEVALBUTEROL 1.25 MG/3 ML NEB NEB SCH ×2 (13:25→20:30)
[2020-11-07] MEDS ORDERED: MAGNESIUM SULFATE 1 gm IVPB 1 GM/100 ML BAG IV ONE ×2 (14:00→14:15)
[2020-11-07] MEDS ORDERED: POTASSIUM CL SA 10 MEQ TAB PO ONE (14:00)
--- NOTE | 2020-11-07 14:52 | ECHO ---
HEIGHT: 5 ft 11 in WEIGHT: 119 lb 11.2 oz DATE OF STUDY: 08/07/[address]: Anastacio Rogers MD 2-DIMENSIONAL: YES M.MODE: YES DOPPLER: YES COLOR FLOW: YES TDS: PORTABLE: DEFINITY: BUBBLE STUDY: DIAGNOSIS: ATRIAL FIBRILLATION CARDIAC HISTORY: CATHERIZATION: SURGERY: PROSTHETIC VALVE: PACEMAKER: MEASUREMENTS (cm) DIASTOLIC (NORMALS) SYSTOLIC (NORMALS) IVSd 0.9 (0.6-1.2) LA Diam 3.1 (1.9-4.0) LVEF 79% LVIDd 3.3 (3.5-5.7) LVIDs 1.8 (2.0-3.5) %FS 47% LVPWd 0.9 (0.6-1.2) Ao Diam 3.1 (2.0-3.7) 2 DIMENSIONAL ASSESSMENT: RIGHT ATRIUM: NORMAL LEFT ATRIUM: NORMAL RIGHT VENTRICLE: NORMAL LEFT VENTRICLE: NORMAL TRICUSPID VALVE: NORMAL MITRAL VALVE: NORMAL PULMONIC VALVE: NORMAL AORTIC VALVE: NORMAL PERICARDIAL EFFUSION: NONE AORTIC ROOT: NORMAL LEFT VENTRICULAR WALL MOTION: DOPPLER/COLOR FLOW: COMMENTS: NORMAL 2-DIMENSIONAL ECHOCARDIOGRAM. ATRIAL FIBRILLATION. NORMAL LEFT ATRIAL SIZE. NO THROMBUS. NO EFFUSION. TECHNOLOGIST: NILDA GUZMAN
[2020-11-07] MEDS: RIVAROXABAN 20 MG TABLET PO SCH (18:02)
--- NOTE | 2020-11-07 20:33 | RAD REPORT ---
EXAM DESCRIPTION: RAD - Chest Single View - 11/07/2020 8:26 pm CLINICAL HISTORY: picc line placement COMPARISON: Chest Single View dated 11/07/2020; Chest Single View dated 11/04/2020; Chest Pa And Lat (2 Views) dated 12/21/2019; Chest Pa And Lat (2 Views) dated 03/12/2018 FINDINGS: Portable chest was obtained following placement of a right upper extremity PICC line. The catheter tip projects over the SVC..
[2020-11-07] MEDS: NA CHLORIDE 0.9% 250 ML IV PRN ×2 (20:43→21:00)
[2020-11-07] MEDS ORDERED: LEVALBUTEROL 1.25 MG/3 ML NEB ONE (20:46)
[2020-11-07] MEDS ORDERED: NA CHLORIDE 0.9% 1,000 ML ONE (20:54)
[2020-11-07] MEDS: ENSURE ENLIVE 237 ML CAN PO SCH (21:00)
[2020-11-08] MEDS ORDERED: HYDROCORTISONE SUC 100 MG INJ ONE ×2 (00:07→05:24)
[2020-11-08] MEDS ORDERED: WATER FOR INJ,STERILE 10 ML ONE ×2 (00:08→05:25)
[2020-11-08] MEDS: NOREPINEPHRINE 4 MG in D5W 250 ML IV PRN ×4 (01:50→21:37)
[2020-11-08] MEDS: Meropenem 1,000 MG in NA CHLORIDE 0.9% 100 ML IV SCH ×3 (01:50→17:00)
[2020-11-08] MEDS: LEVALBUTEROL 1.25 MG/3 ML NEB NEB SCH ×4 (01:51→19:05)
[2020-11-08] MEDS ORDERED: LEVALBUTEROL 1.25 MG/3 ML NEB ONE ×4 (02:00→19:19)
[2020-11-08] MEDS: Ringers Lactate 1,000 ML IV SCH ×3 (02:02→17:15)
[2020-11-08] MEDS ORDERED: Ringers Lactate 1,000 ML IV ONE ×2 (02:15→17:03)
[2020-11-08] MEDS: LACTOBACILLUS/ACIDOPHILUS TAB PO SCH ×3 (03:44→20:08)
[2020-11-08] MEDS: HYDROCORTISONE SUC 100 MG INJ IV SCH (05:25)
[2020-11-08 05:26] LABS: Absolute Lymphocytes (CBC) 0.5 K/uL (0.7-4.9); Basophils % 0.1 % (0-1.3); Hematocrit 40.9 % (39.6-49.0); Lymphocytes % 1.7 % (15.3-44.8); MPV 7.1 fL (7.6-11.3); RBC Red Blood Cell Count 4.32 M/uL (4.33-5.43)
[2020-11-08 05:53] LABS: BUN Blood Urea Nitrogen 14 mg/dL (7-18); Bicarbonate 23 mmol/L (21-32); Glucose Level 193 mg/dL (74-106); Phosphorus 4.1 mg/dL (2.5-4.9); Potassium 3.9 mmol/L (3.5-5.1); Sodium Level 137 mmol/L (136-145)
--- NOTE | 2020-11-08 07:12 | PN ---
Date of Progress Note: 11/08/2020 Mr. Kern has been followed for sepsis, paroxysmal atrial fibrillation. Echocardiogram yesterday w as normal. He is on Xarelto for his atrial fibrillation. It sounds like his sepsis is improving. H is white count, however, is up to 33,000. He is on new antibiotics, but his blood pressure is 110 to day, which is an improvement compared to yesterday. He had gone into paroxysmal atrial fibrillation yesterday with a rapid ventricular response. IV amiodarone was started after a bolus. He remains in atrial fibrillation, but his rate is only 70-80. I would recommend continuing the present regimen f or now. We will see how he does for his atrial fibrillation in the near future. STEFANIE/GEOVANNA Voice ID: [id number] Report ID: [id number]
--- NOTE | 2020-11-08 07:24 | PN ---
Date of Progress Note: 11/07/2020 Subjective: Mr. Kern has been followed for paroxysmal atrial fibrillation. He is on Xarelto. He had sepsis, elevated white count. Echocardiogram, which was done yesterday was perfectly normal wit hout any effusion or wall motion abnormalities or vegetation. The patient had become very hypotensiv e and was transferred from the floor to the ICU. He is on Levophed antibiotics have been changed. H e did go into rapid atrial fibrillation mode from sinus tachycardia today and I started him on IV ami odarone bolus and an IV amiodarone drip. We will see how he does with that. I will continue to foll ow him along with Dr. Aranda. STEFANIE/GEOVANNA Voice ID: [id number] Report ID: [id number]
[2020-11-08 07:27] LABS: Blood Morphology Comment NOT SEEN (NOT SEEN); Platelet Estimate INCR
[2020-11-08] MEDS: IPRATROPIUM BROM 0.5MG/2.5ML NEB PRN (08:20)
[2020-11-08] MEDS: Fluticasone/Umeclidin/Vilanter (Trelegy Ellipta) 100-62.5-25 Blst.W.Dev IH SCH (08:24)
[2020-11-08] MEDS ORDERED: IPRATROPIUM BROM 0.5MG/2.5ML ONE ×3 (08:30→19:19)
[2020-11-08] MEDS: NA CHLORIDE 0.9% 250 ML IV PRN ×2 (08:36→11:54)
[2020-11-08] MEDS: ENSURE ENLIVE 237 ML CAN PO SCH ×3 (09:00→20:09)
[2020-11-08 09:52] LABS: Arterial Blood Carboxyhemoglob 0.5 % (0-1.5); Blood Gas Oxyhemoglobin 95.5 % (94-97); Blood O2 Saturation 96.6 % (92-98.5)
[2020-11-08] MEDS: VANCOMYCIN/NS 1 gm 1 GM/250 ML BAG IVPB SCH (10:28)
--- NOTE | 2020-11-08 10:41 | RAD REPORT ---
EXAM DESCRIPTION: RAD - Chest Single View - 11/08/2020 10:08 am CLINICAL HISTORY: pneumonia/sepsis COMPARISON: Portable November 07 TECHNIQUE: AP portable chest image was obtained 11/08/2020 10:08 am . FINDINGS: PICC line is unchanged. Cystic bullous cavities in each apex again noted. Lung parenchymal opacification is not significantly different. Chronic interstitial opacities are present. Heart and vasculature are normal. No pneumothorax. No acute bony abnormality seen. No acute aortic findings jose pected. IMPRESSION: Stable chest from November 07.
--- NOTE | 2020-11-08 12:23 | P.PN ---
Subjective Date of Service: 11/08/20 Chief Complaint: Respiratory failure and pneumonia Patient developed respiratory distress today with hypoxemia hypercapnia and acidosis he is doing better this morning this happened quite suddenly Adrienne is currently on BiPAP Review of Systems General: Weakness Respiratory: Cough, Shortness of Breath Physical Examination - Vital Signs Temperature: 96.8 F Blood Pressure: 101/67 Pulse: 107 Respirations: 26 Pulse Ox (%): 98 - Physical Exam General: Alert, Moderate distress Respiratory: Crackles/rales (Crackles left greater than the right) Cardiovascular: No edema, Regular rate/rhythm - Studies Microbiology Data (last 24 hrs): 11/04/20 20:07 Sputum Sputum Gram Stain - Final 11/04/20 20:07 Sputum Culture & Sensitivity - Final Staph Aureus Medications List Reviewed: Yes Assessment & Plan - Problems (Diagnosis) (1) Septic shock Current Visit: Yes Status: Acute Plan: Patient was hemodynamically improving plan to wean off the Levophed with IV fluid boluses chest x-rays no change she appears to have a necrotizing pneumonia in the left side most likely from is staph infection also added Keflex patient is on IV vancomycin and meropenem white count is still elevated continue with BiPAP titrate sat to 90% had ipratropium scheduled Q 6 hr
[2020-11-08] MEDS: IPRATROPIUM BROM 0.5MG/2.5ML NEB SCH ×2 (13:24→19:05)
[2020-11-08 13:57] LABS: Arterial Blood Carboxyhemoglob 0.9 % (0-1.5); Blood Gas Oxyhemoglobin 96.6 % (94-97); Blood O2 Saturation 98.2 % (92-98.5)
[2020-11-08] MEDS: RIVAROXABAN 20 MG TABLET PO SCH (16:10)
[2020-11-08] MEDS: CEPHALEXIN 500 MG CAP PO SCH (16:11)
[2020-11-08] MEDS ORDERED: Meropenem 1 GM/100 ML BAG ONE (17:30)
--- NOTE | 2020-11-08 20:33 | P.PN ---
Subjective Date of Service: 11/08/20 Chief Complaint: Respiratory failure and pneumonia Subjective: New changes (HE WAS OKAY THIS AM, COMFORTABLE AT 7:45 AM WITH BIPAP AND OXYGEN. LATER IN AM HE DEVELOPED SUDDEN WORSENING , PH DROPPED TO 7.03 AND CO2 RISED TO 80. DR MELENDEZ TOOK CARE OF HIM WITH BIPAP ADJUSTMENT AND HE IMPROVED, PH CAME UP TO 7.23 AND PCO2 DROPPED TO 53.) HE IS LOOKING AND FEELING A LOT BETTER. DENIES CHEST PAIN. I WAS CALLED BY NURSES ABOUT LOW BP AND DIARRHEA. C DIFF IS PENDING. WE CHANGED ABX FROM ZOSYN TO MERREM AND VANCOMYCIN. IV FLUID BOLUSES 3 WERE GIVEN WITH NO HELP. ICU WAS REOPENED AND HE WAS TRANSFERRED TO ICU, LEVOPHED DRIP STRATED. HE CONTINUED TO HAVE TACHYCARDIA THAT WAS SINUS TACHY BUT AT TIMES A FIB. DR. RICO PUT HIM ON AMIODARONE DRIP AND HIS HR HAS STABLIZED. Review of Systems 10-point ROS is otherwise unremarkable General: Weakness, Malaise Respiratory: Shortness of Breath Physical Examination - Vital Signs Temperature: 96.8 F Blood Pressure: 102/57 Pulse: 95 Respirations: 22 Pulse Ox (%): 99 - Physical Exam General: Oriented x3, Moderate distress HEENT: Atraumatic, PERRLA, EOMI Neck: Supple, JVD not distended Respiratory: Diminished, Crackles/rales Cardiovascular: Regular rate/rhythm, Normal S1 S2 Gastrointestinal: Normal bowel sounds, No tenderness Musculoskeletal: No tenderness Integumentary: No rashes Neurological: Normal speech, Normal tone, Normal affect Lymphatics: No axilla or inguinal lymphadenopathy - Studies Microbiology Data (last 24 hrs): 11/04/20 20:07 Sputum Sputum Gram Stain - Final 11/04/20 20:07 Sputum Culture & Sensitivity - Final Staph Aureus Medications List Reviewed: Yes Assessment And Plan - Current Problems (Diagnosis) (1) Bacterial pneumonia Current Visit: Yes Status: Acute Plan: IV VANCOMYCIN AND ZOSYN. SPUTUM CULTURE WILL DC VANCOMYCIN AFTER CONFIRMATION OF CULTURE. IV ABX HE IS HIGH RISK AND SO HAS DUAL COVERAGE. SPUTUM C S PENDING. MERREM ZOSYN DID NOT WORK. PROGNOSIS GUARDED. CALLED . REPIRATORY FAILURE. BIPAP PRN. HE IS ON THE BEST ANTIBIOTIC COMBINATION- VANCOMYCIN AND MERREM. HE HAS SEVERE COPD AND SO RECOVERY IS POOR. (2) COPD (chronic obstructive pulmonary disease) Current Visit: Yes Status: Chronic Plan: NEBULIZER WILL AVOID STEROIDS HE IS NOT SHOWING ANY EXACERBATION. 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 WILL REDO X RAY IN A MONTH (4) Transient atrial fibrillation Current Visit: Yes Status: Acute Plan: XARELTO PO RATE CONTROL CURRENTLY SINUS TACHYCARDIA FROM SEPSIS. AMIODARONE DROP AND BP SUPPORT FOR LOW BP WITH LEVOPHED. (5) Septic shock Current Visit: Yes Status: Acute Plan: ABOVE FOLLOW PROTOCOL IV FLUIDS. CHANGE TO RL.
[2020-11-09] MEDS: VANCOMYCIN/NS 1 gm 1 GM/250 ML BAG IVPB SCH ×2 (00:21→17:39)
[2020-11-09] MEDS: LEVALBUTEROL 1.25 MG/3 ML NEB NEB SCH ×4 (01:35→20:50)
[2020-11-09] MEDS: IPRATROPIUM BROM 0.5MG/2.5ML NEB SCH ×4 (01:35→20:50)
[2020-11-09] MEDS ORDERED: IPRATROPIUM BROM 0.5MG/2.5ML ONE ×4 (01:47→21:50)
[2020-11-09] MEDS ORDERED: LEVALBUTEROL 1.25 MG/3 ML NEB ONE ×4 (01:47→21:49)
[2020-11-09] MEDS: Meropenem 1,000 MG in NA CHLORIDE 0.9% 100 ML IV SCH ×3 (01:50→16:28)
[2020-11-09] MEDS: LACTOBACILLUS/ACIDOPHILUS TAB PO SCH ×3 (04:00→20:29)
[2020-11-09] MEDS ORDERED: Ringers Lactate 1,000 ML IV ONE ×2 (04:29→20:41)
[2020-11-09] MEDS: CEPHALEXIN 500 MG CAP PO SCH ×2 (04:52)
[2020-11-09] MEDS: Ringers Lactate 1,000 ML IV SCH (06:22)
[2020-11-09 06:24] LABS: Absolute Lymphocytes (CBC) 0.7 K/uL (0.7-4.9); Basophils % 0.2 % (0-1.3); Hematocrit 42.8 % (39.6-49.0); Lymphocytes % 1.9 % (15.3-44.8); MPV 7.4 fL (7.6-11.3)
[2020-11-09 06:36] LABS: Potassium 4.2 mmol/L (3.5-5.1)
[2020-11-09] MEDS: ENSURE ENLIVE 237 ML CAN PO SCH ×3 (09:00→20:29)
[2020-11-09] MEDS: Fluticasone/Umeclidin/Vilanter (Trelegy Ellipta) 100-62.5-25 Blst.W.Dev IH SCH (09:00)
[2020-11-09] MEDS ORDERED: CEPHALEXIN 250 MG CAP ONE (09:01)
[2020-11-09] MEDS: NOREPINEPHRINE 8 MG in Dextrose 5%-Water 500 ML IV PRN ×2 (09:10→16:28)
--- NOTE | 2020-11-09 09:18 | RAD REPORT ---
EXAM DESCRIPTION: RAD - Chest Single View - 11/09/2020 8:30 am CLINICAL HISTORY: SOB/ on Bi Pap Chest pain. COMPARISON: Chest Single View dated 11/08/2020; Chest Single View dated 11/07/2020; Chest Single View dated 11/07/2020; Chest Single View dated 11/04/2020 FINDINGS: Portable technique limits examination quality. Bilateral pulmonary opacities with large full or cavitary lesions in both upper lobes again noted. Th ere has been slight improvement in the left lung aeration since the comparative study. Small bilatera l pleural effusions are noted. The heart is normal in size. Right-sided PICC line has tip in the SVC.
[2020-11-09] MEDS ORDERED: Ringers Lactate 1,000 ML IV SCH ×2 (10:00→12:36)
[2020-11-09 10:46] LABS: Arterial Blood Carboxyhemoglob 0.8 % (0-1.5); Blood Gas Oxyhemoglobin 78.3 % (94-97); Blood O2 Saturation 79.5 % (92-98.5)
--- NOTE | 2020-11-09 10:56 | RAD REPORT ---
EXAM DESCRIPTION: RAD - Abdomen 1 View (KUB) - 11/09/2020 10:49 am CLINICAL HISTORY: Dobhoff placement Pain COMPARISON: No comparisons FINDINGS: The enteric tube is coiled in the stomach.
--- NOTE | 2020-11-09 12:36 | P.PN ---
Subjective Date of Service: 11/09/20 Chief Complaint: Respiratory failure shock Patient has respiratory failure unable to remain of BiPAP is in shock requiring Levophed Review of Systems is unable to be obtained Physical Examination - Vital Signs Temperature: 97.4 F Blood Pressure: 98/79 Pulse: 82 Respirations: 27 Pulse Ox (%): 100 - Physical Exam General: Moderate distress Respiratory: Diminished, Crackles/rales, Expiratory wheezes, Rhonchi/gurgles Cardiovascular: No edema, Normal S1 S2 - Studies Microbiology Data (last 24 hrs): 11/04/20 20:07 Sputum Sputum Gram Stain - Final 11/04/20 20:07 Sputum Culture & Sensitivity - Final Staph Aureus Medications List Reviewed: Yes Assessment & Plan - Problems (Diagnosis) (1) Septic shock Current Visit: Yes Status: Acute Plan: PATIENT ADMITTED WITH SEPTIC SHOCK SECONDARY TO SEVERE COMMUNITY-ACQUIRED PNEUMONIA start on IV hydrocortisone at the cephazolin patient has Staph aureus isolated from the sputum continue with meropenem vancomycin patient is at risk for Pseudomonas infection is white count is very elevated normal echocardiogram patient is on BiPAP patient is on amiodarone now in normal sinus rhythm I have also added Brovana blood gases reviewed patient is hypercapnic he was also acidotic rate increased
[2020-11-09] MEDS ORDERED: IPRATROPIUM BROM 0.5MG/2.5ML NEB SCH (14:00)
[2020-11-09] MEDS ORDERED: HYDROCORTISONE SUC 100 MG INJ ONE ×2 (15:13→20:41)
[2020-11-09] MEDS: THIAMINE 200 MG/2 ML INJ IVP SCH (15:18)
[2020-11-09] MEDS: HYDROCORTISONE SUC 100 MG INJ IV SCH ×2 (15:18→20:31)
[2020-11-09] MEDS ORDERED: WATER FOR INJ,STERILE 10 ML ONE ×2 (15:31→20:41)
[2020-11-09] MEDS ORDERED: THIAMINE 200 MG/2 ML INJ ONE (15:31)
[2020-11-09] MEDS: RIVAROXABAN 20 MG TABLET PO SCH (16:30)
[2020-11-09] MEDS ORDERED: JEVITY 1.5 CAL LIQUID 1,000 ML BOT RTH SCH (17:00)
[2020-11-09] MEDS: CEFAZOLIN/SWI 1gm 1 GM/10 ML SYR IV SCH (17:39)
[2020-11-09] MEDS ORDERED: CEFAZOLIN/SWI 1gm 1 GM/10 ML SYR ONE (17:53)
[2020-11-09] MEDS ORDERED: CEFAZOLIN/NS 1gm 1 GM/50 ML BAG IVPB SCH (18:00)
[2020-11-09] MEDS ORDERED: Ringers Lactate 500 ML IV ONE (19:43)
--- NOTE | 2020-11-09 21:04 | P.PN ---
Subjective Date of Service: 11/09/20 Chief Complaint: Respiratory failure shock Subjective: Worsening HE IS LOOKING AND FEELING A LOT BETTER. DENIES CHEST PAIN. I WAS CALLED BY NURSES ABOUT LOW BP AND DIARRHEA. C DIFF IS PENDING. WE CHANGED ABX FROM ZOSYN TO MERREM AND VANCOMYCIN. IV FLUID BOLUSES 3 WERE GIVEN WITH NO HELP. ICU WAS REOPENED AND HE WAS TRANSFERRED TO ICU, LEVOPHED DRIP STRATED. HE CONTINUED TO HAVE TACHYCARDIA THAT WAS SINUS TACHY BUT AT TIMES A FIB. DR. RICO PUT HIM ON AMIODARONE DRIP AND HIS HR HAS STABLIZED. HE IS NOT RECOVERING. Review of Systems General: Weakness, Malaise Respiratory: Shortness of Breath Physical Examination - Vital Signs Temperature: 97.4 F Blood Pressure: 110/69 Pulse: 81 Respirations: 22 Pulse Ox (%): 100 - Physical Exam General: Cachectic, Moderate distress, Severe distress HEENT: Atraumatic, PERRLA, EOMI Neck: Supple, JVD not distended Respiratory: Diminished, Crackles/rales Cardiovascular: Regular rate/rhythm, Normal S1 S2 Gastrointestinal: Normal bowel sounds, No tenderness Musculoskeletal: No tenderness Integumentary: No rashes Neurological: Normal speech, Normal tone, Normal affect Lymphatics: No axilla or inguinal lymphadenopathy - Studies Microbiology Data (last 24 hrs): 11/04/20 15:42 Blood - Blood Aerobic Blood Culture - Final No growth in 5 days. 11/04/20 15:42 Blood - Blood Anaerobic Blood Culture - Final No growth in 5 days. 11/04/20 15:23 Blood - Blood Aerobic Blood Culture - Final No growth in 5 days. 11/04/20 15:23 Blood - Blood Anaerobic Blood Culture - Final No growth in 5 days. Medications List Reviewed: Yes Assessment And Plan - Current Problems (Diagnosis) (1) Bacterial pneumonia Current Visit: Yes Status: Acute Plan: IV VANCOMYCIN AND ZOSYN. SPUTUM CULTURE WILL DC VANCOMYCIN AFTER CONFIRMATION OF CULTURE. IV ABX HE IS HIGH RISK AND SO HAS DUAL COVERAGE. SPUTUM C S PENDING. MERREM ZOSYN DID NOT WORK. PROGNOSIS GUARDED. CALLED . REPIRATORY FAILURE. BIPAP PRN. HE IS ON THE BEST ANTIBIOTIC COMBINATION- VANCOMYCIN AND MERREM. HE HAS SEVERE COPD AND SO RECOVERY IS POOR. (2) COPD (chronic obstructive pulmonary disease) Current Visit: Yes Status: Chronic Plan: NEBULIZER WILL AVOID STEROIDS HE IS NOT SHOWING ANY EXACERBATION. 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 WILL REDO X RAY IN A MONTH (4) Transient atrial fibrillation Current Visit: Yes Status: Acute Plan: XARELTO PO RATE CONTROL CURRENTLY SINUS TACHYCARDIA FROM SEPSIS. AMIODARONE DROP AND BP SUPPORT FOR LOW BP WITH LEVOPHED. (5) Septic shock Current Visit: Yes Status: Acute Plan: ABOVE FOLLOW PROTOCOL IV FLUIDS. CHANGE TO RL. (6) Respiratory failure Current Visit: Yes Status: Acute Plan: SEVERE COPD ON TOP OF THE SEVERE PNEUMONIA AND CHRONIC CACHEXIA IS THE REASON WHY HE IS NOT IMPROVING. HE IS ON THE BROAD SPECTRUM COMBINATION OF ANTIBI OTICS. DOBHOF FEEDING TUBE IS INSERTED.
[2020-11-10] MEDS ORDERED: CEFAZOLIN/SWI 1gm 1 GM/10 ML SYR ONE ×4 (00:33→16:57)
[2020-11-10] MEDS ORDERED: Ringers Lactate 1,000 ML IV ONE ×3 (00:33→20:01)
[2020-11-10] MEDS: CEFAZOLIN/SWI 1gm 1 GM/10 ML SYR IV SCH ×4 (00:35→16:44)
[2020-11-10] MEDS: Meropenem 1,000 MG in NA CHLORIDE 0.9% 100 ML IV SCH ×3 (00:36→16:50)
[2020-11-10] MEDS: NOREPINEPHRINE 8 MG in Dextrose 5%-Water 500 ML IV PRN (01:17)
[2020-11-10] MEDS: IPRATROPIUM BROM 0.5MG/2.5ML NEB SCH ×4 (02:20→20:24)
[2020-11-10] MEDS: LEVALBUTEROL 1.25 MG/3 ML NEB NEB SCH ×4 (02:20→20:24)
[2020-11-10] MEDS ORDERED: LEVALBUTEROL 1.25 MG/3 ML NEB ONE ×4 (02:29→20:39)
[2020-11-10] MEDS ORDERED: ALBUTEROL 2.5 MG/3 ML NEB SOL ONE (02:30)
[2020-11-10] MEDS ORDERED: IPRATROPIUM BROM 0.5MG/2.5ML ONE ×4 (02:30→20:39)
[2020-11-10] MEDS: LACTOBACILLUS/ACIDOPHILUS TAB PO SCH ×3 (05:16→19:54)
[2020-11-10 05:42] LABS: Absolute Lymphocytes (CBC) 0.3 K/uL (0.7-4.9); Basophils % 0.1 % (0-1.3); Hematocrit 39.3 % (39.6-49.0); Lymphocytes % 1.7 % (15.3-44.8); MPV 7.8 fL (7.6-11.3); RBC Red Blood Cell Count 4.14 M/uL (4.33-5.43)
[2020-11-10 06:34] LABS: Potassium 4.1 mmol/L (3.5-5.1)
[2020-11-10] MEDS: ENSURE ENLIVE 237 ML CAN PO SCH (07:44)
[2020-11-10] MEDS: Fluticasone/Umeclidin/Vilanter (Trelegy Ellipta) 100-62.5-25 Blst.W.Dev IH SCH (07:44)
[2020-11-10] MEDS: HYDROCORTISONE SUC 100 MG INJ IV SCH ×2 (08:06→19:54)
[2020-11-10] MEDS: THIAMINE 200 MG/2 ML INJ IVP SCH ×2 (08:06→22:33)
[2020-11-10 08:16] LABS: Blood Morphology Comment NOT SEEN (NOT SEEN); Platelet Estimate ADEQ
[2020-11-10] MEDS ORDERED: HYDROCORTISONE SUC 100 MG INJ ONE ×2 (08:20→20:00)
[2020-11-10] MEDS ORDERED: THIAMINE 200 MG/2 ML INJ ONE ×2 (08:21→22:48)
[2020-11-10] MEDS ORDERED: WATER FOR INJ,STERILE 10 ML ONE ×2 (08:21→20:01)
[2020-11-10] MEDS: Ringers Lactate 1,000 ML IV SCH ×3 (10:58→19:55)
[2020-11-10] MEDS: VANCOMYCIN/NS 1 gm 1 GM/250 ML BAG IVPB SCH (12:00)
--- NOTE | 2020-11-10 14:09 | P.PN ---
Subjective Date of Service: 11/10/20 Chief Complaint: Respiratory failure shock patient is improving still on Levophed drip more alert today <Ronny Archuleta - Last Filed: 11/10/20 13:58> Date of Service: 11/10/20 MR. ANDINO IS VERY WEAK, STILL NEEDS BIPAP FOR OXYGENATION. HIS OXYGEN DROPS LOW WITH NASAL CANULA. HE IS NOT EATING MUCH AND SO IS ON LEROY FEEDING. <Marek Aranda V - Last Filed: 11/10/20 21:21> Review of Systems is unable to be obtained <Ronny Archuleta - Last Filed: 11/10/20 13:58> 10-point ROS is otherwise unremarkable General: Weakness, Malaise Respiratory: Shortness of Breath <Marek Aranda V - Last Filed: 11/10/20 21:21> Physical Examination - Vital Signs Temperature: 97.1 F Blood Pressure: 96/75 Pulse: 79 Respirations: 24 Pulse Ox (%): 97 - Physical Exam General: Alert Respiratory: Clear to auscultation bilaterally, Diminished Cardiovascular: No edema, Normal pulses - Studies Microbiology Data (last 24 hrs): 11/04/20 15:42 Blood - Blood Aerobic Blood Culture - Final No growth in 5 days. 11/04/20 15:42 Blood - Blood Anaerobic Blood Culture - Final No growth in 5 days. 11/04/20 15:23 Blood - Blood Aerobic Blood Culture - Final No growth in 5 days. 11/04/20 15:23 Blood - Blood Anaerobic Blood Culture - Final No growth in 5 days. Medications List Reviewed: Yes <Ronny Archuleta - Last Filed: 11/10/20 13:58> - Physical Exam General: Alert, Cachectic, Moderate distress HEENT: Atraumatic, PERRLA, EOMI Neck: Supple, JVD not distended Respiratory: Diminished, Crackles/rales Cardiovascular: Regular rate/rhythm, Normal S1 S2 Gastrointestinal: Normal bowel sounds, No tenderness Musculoskeletal: No tenderness Integumentary: No rashes Neurological: Normal speech, Normal tone, Normal affect Lymphatics: No axilla or inguinal lymphadenopathy - Studies Microbiology Data (last 24 hrs): 11/04/20 15:42 Blood - Blood Aerobic Blood Culture - Final No growth in 5 days. 11/04/20 15:42 Blood - Blood Anaerobic Blood Culture - Final No growth in 5 days. 11/04/20 15:23 Blood - Blood Aerobic Blood Culture - Final No growth in 5 days. 11/04/20 15:23 Blood - Blood Anaerobic Blood Culture - Final No growth in 5 days. Medications List Reviewed: Yes <Marek Aranda V - Last Filed: 11/10/20 21:21> Assessment & Plan - Problems (Diagnosis) (1) Septic shock Current Visit: Yes Status: Acute Plan: patient admitted in septic shock additional fluid boluses continue with steroids BiPAP patient's white count has declined renal function is slightly worse/ patient is now off Levophed continue with present antibiotic season able to come off BiPAP patient is only on FiO2 of 30% <Ronny Archuleta - Last Filed: 11/10/20 13:58> - Problems (Diagnosis) (1) Bacterial pneumonia Current Visit: Yes Status: Acute (2) COPD (chronic obstructive pulmonary disease) Current Visit: Yes Status: Chronic Qualifiers: COPD type: emphysema (3) Former smoker Current Visit: Yes Status: Chronic (4) Transient atrial fibrillation Current Visit: Yes Status: Acute Plan: DR. RICO HAS PLACED HIM ON AMIODARONE DRIP (5) Septic shock Current Visit: Yes Status: Acute (6) Respiratory failure Current Visit: Yes Status: Acute Plan: HE IS VERY WEAK AND FATIGUED. HYPOXIA CONTINUES. LTAC MAY BE NEEDED HE IS FRAIL AND SLOW TO RECOVER. OR WE CAN PLACE HIM IN REHAB HERE WHEN STABLE. Qualifiers: Chronicity: acute Respiratory failure complication: hypoxia and hypercapnia Qualified Code(s): J96.01 - Acute respiratory failure with hypoxia; J96.02 - Acute respiratory failure with hypercapnia <Marek Aranda V - Last Filed: 11/10/20 21:21>
[2020-11-10] MEDS: ASCORBIC ACID 500 MG TABLET PO SCH ×2 (16:30→19:54)
[2020-11-10] MEDS: RIVAROXABAN 20 MG TABLET PO SCH (16:40)
[2020-11-10] MEDS ORDERED: ASCORBIC ACID 500 MG TABLET ONE ×2 (16:45→20:01)
[2020-11-10] MEDS: WATER FOR INJ,STERILE 10 ML IV SCH (19:55)
[2020-11-10] MEDS ORDERED: Meropenem 1 GM/100 ML BAG ONE (22:38)
[2020-11-10] MEDS ORDERED: LACTOBACILLUS/ACIDOPHILUS TAB ONE (22:46)
[2020-11-10] MEDS ORDERED: AMIODARONE HCL 150 MG/3 ML INJ IV ONE (23:04)
[2020-11-11] MEDS: CEFAZOLIN/SWI 1gm 1 GM/10 ML SYR IV SCH ×5 (00:23→23:53)
[2020-11-11] MEDS ORDERED: CEFAZOLIN/SWI 1gm 1 GM/10 ML SYR ONE ×5 (00:27→23:12)
[2020-11-11] MEDS: Meropenem 1,000 MG in NA CHLORIDE 0.9% 100 ML IV SCH ×3 (01:06→17:11)
[2020-11-11] MEDS: IPRATROPIUM BROM 0.5MG/2.5ML NEB SCH ×4 (01:53→19:10)
[2020-11-11] MEDS: LEVALBUTEROL 1.25 MG/3 ML NEB NEB SCH ×4 (01:53→19:10)
[2020-11-11] MEDS ORDERED: IPRATROPIUM BROM 0.5MG/2.5ML ONE ×4 (02:04→19:38)
[2020-11-11] MEDS ORDERED: LEVALBUTEROL 1.25 MG/3 ML NEB ONE ×4 (02:04→19:38)
[2020-11-11] MEDS ORDERED: Ringers Lactate 1,000 ML IV ONE ×3 (03:14→21:15)
[2020-11-11] MEDS: LACTOBACILLUS/ACIDOPHILUS TAB PO SCH ×3 (03:22→20:55)
[2020-11-11] MEDS: Ringers Lactate 1,000 ML IV SCH ×3 (03:39→21:06)
[2020-11-11 06:21] LABS: Arterial Blood Carboxyhemoglob 0.9 % (0-1.5); Blood Gas Oxyhemoglobin 92.2 % (94-97); Blood O2 Saturation 93.8 % (92-98.5)
[2020-11-11 08:09] LABS: Absolute Lymphocytes (CBC) 0.4 K/uL (0.7-4.9); Basophils % 0.4 % (0-1.3); Hematocrit 36.5 % (39.6-49.0); Lymphocytes % 1.4 % (15.3-44.8); MPV 8.1 fL (7.6-11.3); RBC Red Blood Cell Count 3.86 M/uL (4.33-5.43)
[2020-11-11] MEDS: WATER FOR INJ,STERILE 10 ML IV SCH ×2 (08:16→21:08)
[2020-11-11] MEDS: HYDROCORTISONE SUC 100 MG INJ IV SCH ×2 (08:17→21:08)
[2020-11-11] MEDS: ZINC SULFATE 220 MG CAP PO SCH (08:17)
[2020-11-11] MEDS: VITAMIN D 1000 UNIT TAB PO SCH (08:17)
[2020-11-11] MEDS: ASCORBIC ACID 500 MG TABLET PO SCH ×3 (08:17→20:55)
[2020-11-11] MEDS: Fluticasone/Umeclidin/Vilanter (Trelegy Ellipta) 100-62.5-25 Blst.W.Dev IH SCH (08:17)
[2020-11-11] MEDS: THIAMINE 200 MG/2 ML INJ IVP SCH ×2 (08:17→21:08)
[2020-11-11] MEDS ORDERED: ASCORBIC ACID 500 MG TABLET ONE ×2 (08:29→14:30)
[2020-11-11] MEDS ORDERED: ZINC SULFATE 220 MG CAP ONE (08:29)
[2020-11-11] MEDS ORDERED: THIAMINE 200 MG/2 ML INJ ONE ×2 (08:29→21:14)
[2020-11-11] MEDS ORDERED: VITAMIN D 1000 UNIT TAB ONE (08:29)
[2020-11-11] MEDS ORDERED: HYDROCORTISONE SUC 100 MG INJ ONE ×2 (08:29→21:14)
[2020-11-11] MEDS ORDERED: WATER FOR INJ,STERILE 10 ML ONE ×3 (08:29→23:14)
[2020-11-11 08:37] LABS: AST/SGOT 15 U/L (15-37); Albumin 1.4 g/dL (3.4-5.0); Alkaline Phosphatase 77 U/L (45-117); BUN Blood Urea Nitrogen 39 mg/dL (7-18); Bicarbonate 26 mmol/L (21-32); Bilirubin Direct < 0.1 mg/dL (0-0.2); Bilirubin Total 0.2 mg/dL (0.2-1.0); Glucose Level 129 mg/dL (74-106); Potassium 3.9 mmol/L (3.5-5.1); Protein, Total 5.1 g/dL (6.4-8.2); Sodium Level 138 mmol/L (136-145)
[2020-11-11 08:58] LABS: ALT/SGPT < 6 U/L (12-78)
[2020-11-11] MEDS ORDERED: APIXABAN 5 MG TABLET PO SCH (09:00)
[2020-11-11] MEDS ORDERED: VANCOMYCIN/NS 1 gm 1 GM/250 ML BAG IVPB SCH (09:00)
[2020-11-11] MEDS ORDERED: ETOMIDATE 20 MG/10 ML VIAL IV ONE (11:10)
[2020-11-11] MEDS ORDERED: SUCCINYLCHOLINE 20 MG/ML (10 ML) IV ONE (11:11)
[2020-11-11] MEDS ORDERED: propofoL 1,000 MG/100 ML VIAL IV ONE (11:17)
[2020-11-11] MEDS ORDERED: propofoL 200 MG/20 ML VIAL IV ONE (11:18)
--- NOTE | 2020-11-11 11:24 | RAD REPORT ---
EXAM DESCRIPTION: Cornel Single View11/11/2020 11:14 am CLINICAL HISTORY: Device placement endotracheal tube placement IMPRESSION: An endotracheal tube is not visualized within the chest.
[2020-11-11] MEDS ORDERED: MIDAZOLAM HCL 2 MG/2 ML INJ IV PRN (11:37)
[2020-11-11] MEDS ORDERED: FENTANYL CITR 100 MCG/2 ML IV PRN (11:37)
[2020-11-11] MEDS ORDERED: HALOPERIDOL LACT 5 MG/ML INJ IV PRN (11:37)
--- NOTE | 2020-11-11 11:49 | RAD REPORT ---
EXAM DESCRIPTION: Aman Single View11/11/2020 11:23 am CLINICAL HISTORY: Device placement endotracheal tube placement IMPRESSION: An endotracheal tube has been inserted with its tip 1.5 centimeters above the gibson.
[2020-11-11 12:08] LABS: Arterial Blood Carboxyhemoglob 0.3 % (0-1.5); Blood Gas Oxyhemoglobin 97.5 % (94-97); Blood O2 Saturation 98.7 % (92-98.5)
--- NOTE | 2020-11-11 12:36 | P.PN ---
Subjective Date of Service: 11/11/20 Chief Complaint: Respiratory failure shock Patient's condition deteriorated today up worsening respiratory failure had to be emergently intubated Review of Systems is unable to be obtained Physical Examination - Vital Signs Temperature: 96.8 F Blood Pressure: 131/89 Pulse: 85 Respirations: 30 Pulse Ox (%): 98 - Physical Exam General: Unresponsive Respiratory: Crackles/rales, Expiratory wheezes, Inspiratory wheezes Cardiovascular: No edema, Regular rate/rhythm - Studies Medications List Reviewed: Yes Assessment & Plan - Problems (Diagnosis) (1) Respiratory failure Current Visit: Yes Status: Acute Plan: Patient is 65 years of age the left acute respiratory failure and had to be intubated he has got bilateral pneumonia presume staff sputum cultures have been sent appears amounts of bile was aspirated from his stomach as 25,000 and was worse no further episodes of atrial fibrillation will stop amiodarone patient is echocardiogram was also normal Dc 8 Xarelto unchanged 2 subcutaneous Lovenox Qualifiers: Chronicity: acute Respiratory failure complication: hypoxia and hypercapnia Qualified Code(s): J96.01 - Acute respiratory failure with hypoxia; J96.02 - Acute respiratory failure with hypercapnia
[2020-11-11 14:48] LABS: Hematocrit 34.8 % (39.6-49.0)
--- NOTE | 2020-11-11 15:36 | P.PN ---
Subjective Date of Service: 11/11/20 Chief Complaint: Respiratory failure shock Subjective: Worsening MR. ANDINO IS VERY WEAK, STILL NEEDS BIPAP FOR OXYGENATION. HIS OXYGEN DROPS LOW WITH NASAL CANULA. HE IS NOT EATING MUCH AND SO IS ON LEROY FEEDING. HE BECAME SEVERELY HYPOXIC THIS AM AND HAD TO BE INTUBATED. Review of Systems is unable to be obtained Physical Examination - Vital Signs Temperature: 96.8 F Blood Pressure: 88/61 Pulse: 80 Respirations: 18 Pulse Ox (%): 100 - Physical Exam General: Cachectic, Unresponsive (SEDATED, INTUABTED. ) Respiratory: Crackles/rales - Studies Medications List Reviewed: Yes Assessment And Plan - Current Problems (Diagnosis) (1) Bacterial pneumonia Current Visit: Yes Status: Acute Plan: . PROGNOSIS GUARDED. CALLED . REPIRATORY FAILURE. BIPAP PRN. HE IS ON THE BEST ANTIBIOTIC COMBINATION- VANCOMYCIN AND MERREM. HE HAS SEVERE COPD AND SO RECOVERY IS POOR. REFER TO LTAC. (2) COPD (chronic obstructive pulmonary disease) Current Visit: Yes Status: Chronic Plan: NEBULIZER WILL AVOID STEROIDS HE IS NOT SHOWING ANY EXACERBATION. 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 WILL REDO X RAY IN A MONTH (4) Transient atrial fibrillation Current Visit: Yes Status: Acute Plan: DR. RICO HAS PLACED HIM ON AMIODARONE DRIP (5) Septic shock Current Visit: Yes Status: Acute Plan: ABOVE FOLLOW PROTOCOL IV FLUIDS. CHANGE TO RL. (6) Respiratory failure Current Visit: Yes Status: Acute Plan: HE IS VERY WEAK AND FATIGUED. HYPOXIA CONTINUES. LTAC MAY BE NEEDED HE IS FRAIL AND SLOW TO RECOVER. OR WE CAN PLACE HIM IN REHAB HERE WHEN STABLE. Qualifiers: Chronicity: acute Respiratory failure complication: hypoxia and hypercapnia Qualified Code(s): J96.01 - Acute respiratory failure with hypoxia; J96.02 - Acute respiratory failure with hypercapnia
[2020-11-11] MEDS: FAMOTIDINE 20 MG/2 ML VIAL IV SCH (21:08)
[2020-11-11] MEDS: ENOXAPARIN 60 MG/0.6 ML SQ SCH (21:08)
[2020-11-11] MEDS ORDERED: ENOXAPARIN 60 MG/0.6 ML SQ ONE (21:14)
[2020-11-11] MEDS ORDERED: FAMOTIDINE 20 MG/2 ML VIAL IV ONE (21:14)
[2020-11-11] MEDS ORDERED: Meropenem 1 GM/100 ML BAG ONE (21:15)
[2020-11-11] MEDS ORDERED: CEFAZOLIN SODIUM 1 GM/VIAL ONE (23:13)
[2020-11-12] MEDS: Meropenem 1,000 MG in NA CHLORIDE 0.9% 100 ML IV SCH ×3 (00:01→18:00)
[2020-11-12] MEDS: IPRATROPIUM BROM 0.5MG/2.5ML NEB SCH ×4 (01:20→19:25)
[2020-11-12] MEDS: LEVALBUTEROL 1.25 MG/3 ML NEB NEB SCH ×4 (01:20→19:25)
[2020-11-12] MEDS ORDERED: LEVALBUTEROL 1.25 MG/3 ML NEB ONE ×4 (01:40→19:41)
[2020-11-12] MEDS ORDERED: IPRATROPIUM BROM 0.5MG/2.5ML ONE ×4 (01:40→19:40)
[2020-11-12] MEDS ORDERED: Ringers Lactate 1,000 ML IV ONE ×3 (01:41→22:07)
[2020-11-12] MEDS ORDERED: propofoL 1,000 MG/100 ML VIAL IV ONE (01:42)
[2020-11-12] MEDS: LACTOBACILLUS/ACIDOPHILUS TAB PO SCH ×3 (03:33→20:27)
[2020-11-12] MEDS: Ringers Lactate 1,000 ML IV SCH ×5 (04:19→21:58)
[2020-11-12] MEDS: propofoL 1,000 MG/100 ML VIAL IV PRN (04:19)
[2020-11-12] MEDS: CEFAZOLIN/SWI 1gm 1 GM/10 ML SYR IV SCH ×3 (05:10→18:00)
[2020-11-12 05:57] LABS: Absolute Lymphocytes (CBC) 0.5 K/uL (0.7-4.9); Basophils % 0.2 % (0-1.3); Hematocrit 30.2 % (39.6-49.0); Lymphocytes % 3.3 % (15.3-44.8); MPV 8.1 fL (7.6-11.3); RBC Red Blood Cell Count 3.25 M/uL (4.33-5.43)
[2020-11-12] MEDS ORDERED: VANCOMYCIN/NS 1 gm 1 GM/250 ML BAG IVPB SCH (06:00)
[2020-11-12 06:09] LABS: Blood Gas Oxyhemoglobin 96.5 % (94-97); Blood O2 Saturation 98.3 % (92-98.5)
[2020-11-12 06:17] LABS: Potassium 3.7 mmol/L (3.5-5.1)
[2020-11-12] MEDS ORDERED: KCL 20 MEQ/100 mL IVPB 20 MEQ/100 ML BAG IV SCH (08:00)
[2020-11-12] MEDS: Fluticasone/Umeclidin/Vilanter (Trelegy Ellipta) 100-62.5-25 Blst.W.Dev IH SCH (09:00)
[2020-11-12] MEDS ORDERED: THIAMINE 200 MG/2 ML INJ ONE ×2 (09:28→20:35)
[2020-11-12] MEDS ORDERED: ZINC SULFATE 220 MG CAP ONE (09:28)
[2020-11-12] MEDS ORDERED: VITAMIN D 1000 UNIT TAB ONE (09:28)
[2020-11-12] MEDS ORDERED: HYDROCORTISONE SUC 100 MG INJ ONE ×2 (09:28→19:35)
[2020-11-12] MEDS ORDERED: FAMOTIDINE 20 MG/2 ML VIAL IV ONE ×2 (09:29→19:35)
[2020-11-12] MEDS ORDERED: WATER FOR INJ,STERILE 10 ML ONE (09:29)
[2020-11-12] MEDS ORDERED: KCL 20 MEQ/100 mL IVPB 20 MEQ/100 ML BAG IV ONE (09:29)
[2020-11-12] MEDS ORDERED: ENOXAPARIN 60 MG/0.6 ML SQ ONE ×2 (09:29→19:36)
[2020-11-12] MEDS: ENOXAPARIN 60 MG/0.6 ML SQ SCH (09:37)
[2020-11-12] MEDS: HYDROCORTISONE SUC 100 MG INJ IV SCH (09:38)
[2020-11-12] MEDS: ZINC SULFATE 220 MG CAP PO SCH (09:38)
[2020-11-12] MEDS: WATER FOR INJ,STERILE 10 ML IV SCH (09:38)
[2020-11-12] MEDS: FAMOTIDINE 20 MG/2 ML VIAL IV SCH ×2 (09:38→20:24)
[2020-11-12] MEDS: VITAMIN D 1000 UNIT TAB PO SCH (09:38)
[2020-11-12] MEDS: THIAMINE 200 MG/2 ML INJ IVP SCH ×2 (09:39→20:24)
--- NOTE | 2020-11-12 10:16 | RAD REPORT ---
EXAM DESCRIPTION: RAD - Chest Single View - 11/12/2020 6:46 am CLINICAL HISTORY: PNA Chest pain. COMPARISON: Chest Single View dated 11/11/2020; Chest Single View dated 11/11/2020; Abdomen 1 View ([facility]) dated 11/09/2020; Chest Single View dated 11/09/2020 FINDINGS: Portable technique limits examination quality. Tip of the endotracheal tube is above the gibson. Bullous emphysematous changes in the lung apices wi th poorly defined upper lobe lung opacities appears slightly worse than on the prior study. The heart is normal in size. Enteric tube descends in the stomach.Right-sided PICC line is in position. IMPRESSION: Mild worsening in lung aeration seen since preceding day's study.
[2020-11-12] MEDS ORDERED: ASCORBIC ACID 500 MG TABLET ONE ×3 (10:39→19:35)
[2020-11-12] MEDS: ASCORBIC ACID 500 MG TABLET PO SCH ×3 (10:58→20:26)
[2020-11-12] MEDS ORDERED: CEFAZOLIN/SWI 1gm 1 GM/10 ML SYR ONE ×3 (13:08→22:08)
--- NOTE | 2020-11-12 15:02 | P.PN ---
Subjective Date of Service: 11/12/20 Chief Complaint: Respiratory failure shock Subjective: Worsening MR. ANDINO IS VERY WEAK, STILL NEEDS BIPAP FOR OXYGENATION. HIS OXYGEN DROPS LOW WITH NASAL CANULA. HE IS NOT EATING MUCH AND SO IS ON LEROY FEEDING. HE BECAME SEVERELY HYPOXIC THIS AM AND HAD TO BE INTUBATED. BRITTANY HAS SEVERE COPD. GOT WORSE AND HAD TO BE INTUBATED. HE GOT WORSE DESPITE BEING ON MERREM AND VANCOMYCIN . DR. VEGAS CHANGED TO ANCEF HE HAS STAPH FROM SPUTUM THAT IS NOT MRSA HE ALSO WANTS TO STOP MERREM. Physical Examination - Vital Signs Temperature: 97.3 F Blood Pressure: 109/94 Pulse: 89 Respirations: 18 Pulse Ox (%): 100 - Physical Exam General: Cachectic, Severe distress HEENT: Atraumatic, PERRLA, EOMI Neck: Supple, JVD not distended Respiratory: Clear to auscultation bilaterally, Normal air movement Cardiovascular: Regular rate/rhythm, Normal S1 S2 Gastrointestinal: Normal bowel sounds, No tenderness Musculoskeletal: No tenderness Integumentary: No rashes Neurological: Normal speech, Normal tone, Normal affect Lymphatics: No axilla or inguinal lymphadenopathy - Studies Medications List Reviewed: Yes Assessment And Plan - Current Problems (Diagnosis) (1) Bacterial pneumonia Current Visit: Yes Status: Acute Plan: . PROGNOSIS GUARDED. CALLED . REPIRATORY FAILURE. BIPAP PRN. HE IS ON THE BEST ANTIBIOTIC COMBINATION- VANCOMYCIN AND MERREM. HE HAS SEVERE COPD AND SO RECOVERY IS POOR. REFER TO LTAC. SEVERE CONDITION. HE HAS VERY POOR LUNG FUNCTION BEFORE THE PNEUMONIA. HE IS NOT ABLE TO RECOVER WITH THE SMALL AMOUNT OF FUNCTIONING LUNGS HE HAS TALKED TO . HE WILL NEED TO GO TO LTAC. (2) COPD (chronic obstructive pulmonary disease) Current Visit: Yes Status: Chronic Plan: NEBULIZER WILL AVOID STEROIDS HE IS NOT SHOWING ANY EXACERBATION. 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 WILL REDO X RAY IN A MONTH (4) Transient atrial fibrillation Current Visit: Yes Status: Acute Plan: DR. RICO HAS PLACED HIM ON AMIODARONE DRIP (5) Septic shock Current Visit: Yes Status: Acute Plan: ABOVE FOLLOW PROTOCOL IV FLUIDS. CHANGE TO RL. (6) Respiratory failure Current Visit: Yes Status: Acute Plan: HE IS VERY WEAK AND FATIGUED. HYPOXIA CONTINUES. LTAC MAY BE NEEDED HE IS FRAIL AND SLOW TO RECOVER. OR WE CAN PLACE HIM IN REHAB HERE WHEN STABLE. Qualifiers: Chronicity: acute Respiratory failure complication: hypoxia and hypercapnia Qualified Code(s): J96.01 - Acute respiratory failure with hypoxia; J96.02 - Acute respiratory failure with hypercapnia
[2020-11-13] MEDS: Meropenem 1,000 MG in NA CHLORIDE 0.9% 100 ML IV SCH ×2 (00:23→08:59)
[2020-11-13] MEDS: CEFAZOLIN/SWI 1gm 1 GM/10 ML SYR IV SCH ×5 (00:24→23:46)
[2020-11-13] MEDS: LORazepam 2 MG/ML VIAL IV PRN ×3 (01:33→23:47)
[2020-11-13] MEDS: LEVALBUTEROL 1.25 MG/3 ML NEB NEB SCH ×4 (01:40→20:30)
[2020-11-13] MEDS: IPRATROPIUM BROM 0.5MG/2.5ML NEB SCH ×4 (01:40→20:30)
[2020-11-13] MEDS ORDERED: LORazepam 2 MG/ML VIAL ONE ×2 (01:42→13:16)
[2020-11-13] MEDS ORDERED: LEVALBUTEROL 1.25 MG/3 ML NEB ONE ×4 (01:54→20:37)
[2020-11-13] MEDS ORDERED: IPRATROPIUM BROM 0.5MG/2.5ML ONE ×4 (01:54→20:37)
[2020-11-13] MEDS: LACTOBACILLUS/ACIDOPHILUS TAB PO SCH ×3 (03:10→20:28)
[2020-11-13] MEDS ORDERED: propofoL 1,000 MG/100 ML VIAL IV ONE (03:23)
[2020-11-13] MEDS: propofoL 1,000 MG/100 ML VIAL IV PRN (04:32)
[2020-11-13] MEDS ORDERED: CEFAZOLIN/SWI 1gm 1 GM/10 ML SYR ONE ×3 (04:53→18:16)
[2020-11-13] MEDS ORDERED: Ringers Lactate 1,000 ML IV ONE ×2 (04:53→18:16)
[2020-11-13 05:28] LABS: Blood O2 Saturation 97.5 % (92-98.5)
[2020-11-13] MEDS: Ringers Lactate 1,000 ML IV SCH ×2 (05:51→18:04)
[2020-11-13 05:52] LABS: Absolute Lymphocytes (CBC) 0.9 K/uL (0.7-4.9); Basophils % 0.2 % (0-1.3); Hematocrit 29.4 % (39.6-49.0); Lymphocytes % 7.7 % (15.3-44.8); RBC Red Blood Cell Count 3.16 M/uL (4.33-5.43)
[2020-11-13 06:00] LABS: Magnesium 2.1 mg/dL (1.8-2.4); Phosphorus 2.6 mg/dL (2.5-4.9); Potassium 3.6 mmol/L (3.5-5.1)
[2020-11-13 07:14] LABS: Blood Morphology Comment NOT SEEN (NOT SEEN); Platelet Estimate DECR
[2020-11-13] MEDS: Fluticasone/Umeclidin/Vilanter (Trelegy Ellipta) 100-62.5-25 Blst.W.Dev IH SCH (07:29)
[2020-11-13] MEDS ORDERED: POTASSIUM 25 MEQ EFFERV TAB PO ONE (08:00)
--- NOTE | 2020-11-13 08:10 | RAD REPORT ---
EXAM DESCRIPTION: RAD - Chest Single View - 11/13/2020 7:15 am CLINICAL HISTORY: PNA COMPARISON: Portable November 12 TECHNIQUE: AP portable chest image was obtained 11/13/2020 7:15 am . FINDINGS: Biapical cavitary changes are stable. Dense left mid lung field parenchymal opacification is similar to fractionally improved. Elsewhere interstitial and patchy alveolar opacities are stable. ET tube and right PICC line unchanged. NG tube extends below the diaphragm, off the field of view. Heart and vasculature are normal. No measurable pleural effusion and no pneumothorax. No acute bony a bnormality seen. No acute aortic findings suspected. IMPRESSION: Lung parenchymal opacification pattern is similar or only very slightly improved since p imaging.
[2020-11-13] MEDS ORDERED: VITAMIN D 1000 UNIT TAB ONE (08:47)
[2020-11-13] MEDS ORDERED: FAMOTIDINE 20 MG/2 ML VIAL IV ONE ×2 (08:48→20:38)
[2020-11-13] MEDS ORDERED: ASCORBIC ACID 500 MG TABLET ONE (08:48)
[2020-11-13] MEDS ORDERED: POTASSIUM 25 MEQ EFFERV TAB ONE (08:48)
[2020-11-13] MEDS ORDERED: ZINC SULFATE 220 MG CAP ONE (08:48)
[2020-11-13] MEDS: ASCORBIC ACID 500 MG TABLET PO SCH (08:59)
[2020-11-13] MEDS: FAMOTIDINE 20 MG/2 ML VIAL IV SCH ×2 (08:59→20:27)
[2020-11-13] MEDS: VITAMIN D 1000 UNIT TAB PO SCH (08:59)
[2020-11-13] MEDS: ZINC SULFATE 220 MG CAP PO SCH (09:00)
[2020-11-13] MEDS: THIAMINE 200 MG/2 ML INJ IVP SCH (09:00)
[2020-11-13] MEDS ORDERED: VITAL AF 1,000 ML BOT RTH SCH (10:00)
--- NOTE | 2020-11-13 11:52 | P.PN ---
Subjective Date of Service: 11/13/20 Chief Complaint: Respiratory failure s Patient is improving is more alert responsive still has copious secretions for previous aspirate from his NG tube Review of Systems is unable to be obtained Physical Examination - Vital Signs Temperature: 97 F Blood Pressure: 117/88 Pulse: 92 Respirations: 16 Pulse Ox (%): 100 - Physical Exam General: Alert, Cooperative Respiratory: Crackles/rales (Crackles bilaterally), Expiratory wheezes Cardiovascular: No edema, Regular rate/rhythm - Studies Medications List Reviewed: Yes Assessment & Plan - Problems (Diagnosis) (1) Respiratory failure Current Visit: Yes Status: Acute Plan: Patient admitted with respiratory failure severe community-acquired pneumonia shock has resolved the less copious secretions reduced IV fluids Dc hydrocortisone Dc meropenem continue with the and Staph added levofloxacin he is at high risk for Pseudomonas infection continue with bronchodilators oxygenation satisfactory start to wean E mom from the ventilator renal function is much better sputum cultures of shown Staph blood cultures are all negative labs reviewed patient is off vasopressors reduce IV fluids sitter starting tube feeds Qualifiers: Chronicity: acute Respiratory failure complication: hypoxia and hypercapnia Qualified Code(s): J96.01 - Acute respiratory failure with hypoxia; J96.02 - Acute respiratory failure with hypercapnia
[2020-11-13] MEDS ORDERED: Levofloxacin500mg IV 500 MG/100 ML BAG IV SCH (12:00)
[2020-11-13] MEDS: THIAMINE HCL 100 MG TABLET PO SCH ×2 (13:09→20:28)
[2020-11-13] MEDS ORDERED: THIAMINE HCL 100 MG TABLET ONE (13:17)
[2020-11-13] MEDS ORDERED: Levofloxacin500mg IV 500 MG/100 ML BAG IV ONE (13:17)
--- NOTE | 2020-11-13 15:39 | RAD REPORT ---
EXAM DESCRIPTION: US - UPPER EXTREMITY VENOUS UNILATE - 11/13/2020 3:26 pm CLINICAL HISTORY: Right arm pain and swelling COMPARISON: None. TECHNIQUE: Real-time sonographic evaluation of the right upper extremity deep venous systems was per formed. FINDINGS: Normal compressibility, flow augmentation, phasic flow and spontaneous flow are identified in the right upper extremity deep venous system. No intraluminal filling defects seen. Internal jugu lar and subclavian veins are normal as well. Thrombus is present in the distal portions of the cephalic and basilic veins distal to the elbow. Rig ht-sided PICC line is identifiable. IMPRESSION: Superficial venous thrombosis is present in the cephalic and basilic veins near the elbo w joint. No deep venous thrombosis identifiable.
--- NOTE | 2020-11-13 15:50 | P.PN ---
Subjective Date of Service: 11/13/20 Chief Complaint: Respiratory failure s Subjective: Improving MR. ANDINO IS VERY WEAK, STILL NEEDS BIPAP FOR OXYGENATION. HIS OXYGEN DROPS LOW WITH NASAL CANULA. HE IS NOT EATING MUCH AND SO IS ON LEROY FEEDING. HE BECAME SEVERELY HYPOXIC THIS AM AND HAD TO BE INTUBATED. BRITTANY HAS SEVERE COPD. GOT WORSE AND HAD TO BE INTUBATED. HE GOT WORSE DESPITE BEING ON MERREM AND VANCOMYCIN . DR. VEGAS CHANGED TO ANCEF HE HAS STAPH FROM SPUTUM THAT IS NOT MRSA HE ALSO WANTS TO STOP MERREM. INTUBATED, WEAK, BP IS STABLE. FOLLOWS COMMANDS. Review of Systems is unable to be obtained General: Malaise Physical Examination - Vital Signs Temperature: 97.4 F Blood Pressure: 92/63 Pulse: 81 Respirations: 18 Pulse Ox (%): 100 - Physical Exam General: Oriented x3, Cachectic, Moderate distress HEENT: Atraumatic, PERRLA, EOMI Neck: Supple, JVD not distended Respiratory: Crackles/rales Cardiovascular: Regular rate/rhythm, Normal S1 S2 Gastrointestinal: Normal bowel sounds, No tenderness Musculoskeletal: No tenderness Integumentary: No rashes Neurological: Normal speech, Normal tone, Normal affect Lymphatics: No axilla or inguinal lymphadenopathy - Studies Medications List Reviewed: Yes Assessment And Plan - Current Problems (Diagnosis) (1) Bacterial pneumonia Current Visit: Yes Status: Acute Plan: . PROGNOSIS GUARDED. CALLED . REPIRATORY FAILURE. BIPAP PRN. HE IS ON THE BEST ANTIBIOTIC COMBINATION- VANCOMYCIN AND MERREM. HE HAS SEVERE COPD AND SO RECOVERY IS POOR. REFER TO LTAC. SEVERE CONDITION. HE HAS VERY POOR LUNG FUNCTION BEFORE THE PNEUMONIA. HE IS NOT ABLE TO RECOVER WITH THE SMALL AMOUNT OF FUNCTIONING LUNGS HE HAS TALKED TO . HE WILL NEED TO GO TO LTAC. (2) COPD (chronic obstructive pulmonary disease) Current Visit: Yes Status: Chronic Plan: NEBULIZER WILL AVOID STEROIDS HE IS NOT SHOWING ANY EXACERBATION. 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 WILL REDO X RAY IN A MONTH (4) Transient atrial fibrillation Current Visit: Yes Status: Acute Plan: DR. RICO HAS PLACED HIM ON AMIODARONE DRIP (5) Septic shock Current Visit: Yes Status: Acute Plan: ABOVE FOLLOW PROTOCOL IV FLUIDS. CHANGE TO RL. (6) Respiratory failure Current Visit: Yes Status: Acute Plan: HE IS VERY WEAK AND FATIGUED. HYPOXIA CONTINUES. LTAC MAY BE NEEDED HE IS FRAIL AND SLOW TO RECOVER. OR WE CAN PLACE HIM IN REHAB HERE WHEN STABLE. HE IS OFF STEROIDS DR. VEGAS MODIFIED ANTIBIOTICS. LOVENOX REDUCED HE WILL NEED LESS AND PLATELTES ARE LOWER. Qualifiers: Chronicity: acute Respiratory failure complication: hypoxia and hypercapnia Qualified Code(s): J96.01 - Acute respiratory failure with hypoxia; J96.02 - Acute respiratory failure with hypercapnia
[2020-11-13] MEDS: ENOXAPARIN 40 MG/0.4 ML SQ SCH ×2 (17:00→18:04)
[2020-11-13] MEDS ORDERED: ENOXAPARIN 40 MG/0.4 ML SQ ONE (18:16)
[2020-11-13] MEDS ORDERED: APIXABAN 5 MG TABLET ONE (20:00)
[2020-11-13] MEDS: APIXABAN 5 MG TABLET FT SCH (20:28)
[2020-11-14] MEDS: IPRATROPIUM BROM 0.5MG/2.5ML NEB SCH ×4 (02:00→19:34)
[2020-11-14] MEDS: LEVALBUTEROL 1.25 MG/3 ML NEB NEB SCH ×4 (02:00→19:34)
[2020-11-14] MEDS ORDERED: IPRATROPIUM BROM 0.5MG/2.5ML ONE ×3 (02:04→19:51)
[2020-11-14] MEDS ORDERED: LEVALBUTEROL 1.25 MG/3 ML NEB ONE ×3 (02:04→19:51)
[2020-11-14] MEDS: LACTOBACILLUS/ACIDOPHILUS TAB PO SCH ×3 (03:24→20:05)
[2020-11-14] MEDS ORDERED: CEFAZOLIN SODIUM 1 GM/VIAL ONE ×2 (03:37)
[2020-11-14] MEDS: CEFAZOLIN/SWI 1gm 1 GM/10 ML SYR IV SCH (05:54)
[2020-11-14 05:59] LABS: Arterial Blood Carboxyhemoglob 1.3 % (0-1.5); Blood Gas Oxyhemoglobin 92.9 % (94-97); Blood O2 Saturation 94.7 % (92-98.5)
[2020-11-14 06:12] LABS: Magnesium 2.1 mg/dL (1.8-2.4); Phosphorus 2.4 mg/dL (2.5-4.9); Potassium 3.7 mmol/L (3.5-5.1)
[2020-11-14] MEDS ORDERED: Pharmacy Consult 1 EA XX PRN (07:41)
--- NOTE | 2020-11-14 07:52 | RAD REPORT ---
EXAM DESCRIPTION: RAD - Chest Single View - 11/14/2020 5:08 am CLINICAL HISTORY: PNA COMPARISON: Portable November 13 TECHNIQUE: AP portable chest image was obtained 11/14/2020 5:08 am . FINDINGS: No change to the air-filled cystic cavities in each apex. Parenchymal opacification along the inferior aspect of each cystic cavity has not clearly changed. Very slight further improvement no maureen in the left mid lung field opacification which abuts the left apical cystic cavity. Interstitial opacification in each lower lung field may be slightly worse. No consolidation in either lung base. H eart and vasculature are normal. No measurable pleural effusion and no pneumothorax. ET tube, NG tube and right-sided PICC line are unchanged. IMPRESSION: Focal consolidation in the left midlung field has shown further clearing on serial exami nation. Bilateral interstitial opacification appear slightly worse. In the setting of improving pneumonia fin dings, this may represent interstitial edema rather than progressive pneumonia.
[2020-11-14] MEDS ORDERED: KCL 20 MEQ/100 mL IVPB 20 MEQ/100 ML BAG IV SCH (08:00)
[2020-11-14] MEDS: Ringers Lactate 1,000 ML IV SCH (08:47)
[2020-11-14] MEDS: APIXABAN 5 MG TABLET FT SCH ×2 (08:49→20:06)
[2020-11-14] MEDS: VANCOMYCIN/NS 1 gm 1 GM/250 ML BAG IVPB SCH (08:50)
[2020-11-14] MEDS: ZINC SULFATE 220 MG CAP PO SCH (08:50)
[2020-11-14] MEDS: VITAMIN D 1000 UNIT TAB PO SCH (08:50)
[2020-11-14] MEDS: FAMOTIDINE 20 MG/2 ML VIAL IV SCH ×2 (08:50→20:05)
[2020-11-14] MEDS: THIAMINE HCL 100 MG TABLET PO SCH ×2 (08:50→20:05)
[2020-11-14] MEDS: LORazepam 2 MG/ML VIAL IV PRN ×2 (09:26→23:00)
[2020-11-14] MEDS ORDERED: LORazepam 2 MG/ML VIAL ONE ×3 (09:40→22:41)
[2020-11-14] MEDS ORDERED: VITAL AF 1,000 ML BOT RTH SCH (11:39)
[2020-11-14] MEDS: NA CHLORIDE 0.9% IVPB SCH ×4 (12:00→23:57)
[2020-11-14] MEDS: NAFCILLIN SODIUM IVPB SCH ×2 (12:00→17:25)
--- NOTE | 2020-11-14 12:50 | P.PN ---
Subjective Date of Service: 11/14/20 Chief Complaint: Respiratory failure s Patient is improving tolerating tube feeds still has copious secretions minimal oxygen requirements borderline low blood pressure Review of Systems is unable to be obtained Physical Examination - Vital Signs Temperature: 97.9 F Blood Pressure: 99/70 Pulse: 84 Respirations: 14 Pulse Ox (%): 98 - Physical Exam General: Alert, Cooperative Respiratory: Crackles/rales, Expiratory wheezes - Studies Medications List Reviewed: Yes Assessment & Plan - Problems (Diagnosis) (1) Respiratory failure Current Visit: Yes Status: Acute Plan: Respiratory failure do sputum cultures are positive for Staphylococcus aureus continue with vancomycin staff is resistant to many other antibiotics including fluoroquinolones of ordered oxacillin white count is decreased 12.3 chest x-ray looks better hemodynamically stable plan to wean him off from the ventilator continue with IV fluids Qualifiers: Chronicity: acute Respiratory failure complication: hypoxia and hypercapnia Qualified Code(s): J96.01 - Acute respiratory failure with hypoxia; J96.02 - Acute respiratory failure with hypercapnia
[2020-11-14] MEDS: OXACILLIN SODIUM IVPB SCH ×2 (18:29→23:57)
[2020-11-14] MEDS ORDERED: FAMOTIDINE 20 MG/2 ML VIAL IV ONE (20:13)
[2020-11-14] MEDS ORDERED: APIXABAN 5 MG TABLET ONE (20:13)
[2020-11-14] MEDS ORDERED: THIAMINE HCL 100 MG TABLET ONE (20:13)
--- NOTE | 2020-11-14 21:34 | P.PN ---
Subjective Date of Service: 11/14/20 Chief Complaint: Respiratory failure s Subjective: No new changes MR. ANDINO IS VERY WEAK, STILL NEEDS BIPAP FOR OXYGENATION. HIS OXYGEN DROPS LOW WITH NASAL CANULA. HE IS NOT EATING MUCH AND SO IS ON LEROY FEEDING. HE BECAME SEVERELY HYPOXIC THIS AM AND HAD TO BE INTUBATED. BRITTANY HAS SEVERE COPD. GOT WORSE AND HAD TO BE INTUBATED. HE GOT WORSE DESPITE BEING ON MERREM AND VANCOMYCIN . DR. VEGAS CHANGED TO ANCEF HE HAS STAPH FROM SPUTUM THAT IS NOT MRSA HE ALSO WANTS TO STOP MERREM. INTUBATED, WEAK, BP IS STABLE. FOLLOWS COMMANDS. STILL VERY WEAK NOT ABLE TO BREATH ON HIS OWN COPIOUS SECRETIONS PER ET TUBE. Review of Systems 10-point ROS is otherwise unremarkable General: Weakness, Malaise Physical Examination - Vital Signs Temperature: 97.9 F Blood Pressure: 95/75 Pulse: 87 Respirations: 20 Pulse Ox (%): 98 - Physical Exam General: Oriented x3, Cachectic, Moderate distress HEENT: Atraumatic, PERRLA, EOMI Neck: Supple, JVD not distended Respiratory: Clear to auscultation bilaterally, Normal air movement Cardiovascular: Regular rate/rhythm, Normal S1 S2 Gastrointestinal: Normal bowel sounds, No tenderness Musculoskeletal: No tenderness Integumentary: No rashes Neurological: Normal speech, Normal tone, Normal affect Lymphatics: No axilla or inguinal lymphadenopathy - Studies Medications List Reviewed: Yes Assessment And Plan - Current Problems (Diagnosis) (1) Bacterial pneumonia Current Visit: Yes Status: Acute Plan: . PROGNOSIS GUARDED. CALLED . REPIRATORY FAILURE. BIPAP PRN. HE IS ON THE BEST ANTIBIOTIC COMBINATION- VANCOMYCIN AND MERREM. HE HAS SEVERE COPD AND SO RECOVERY IS POOR. REFER TO LTAC. SEVERE CONDITION. HE HAS VERY POOR LUNG FUNCTION BEFORE THE PNEUMONIA. HE IS NOT ABLE TO RECOVER WITH THE SMALL AMOUNT OF FUNCTIONING LUNGS HE HAS TALKED TO . HE WILL NEED TO GO TO LTAC. NOT GETTING BETTER. DR. VEGAS MANAGING THIS. (2) COPD (chronic obstructive pulmonary disease) Current Visit: Yes Status: Chronic Plan: NEBULIZER WILL AVOID STEROIDS HE IS NOT SHOWING ANY EXACERBATION. 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 WILL REDO X RAY IN A MONTH (4) Transient atrial fibrillation Current Visit: Yes Status: Acute Plan: DR. RICO HAS PLACED HIM ON AMIODARONE DRIP (5) Septic shock Current Visit: Yes Status: Acute Plan: ABOVE FOLLOW PROTOCOL IV FLUIDS. CHANGE TO RL. (6) Respiratory failure Current Visit: Yes Status: Acute Plan: HE IS VERY WEAK AND FATIGUED. HYPOXIA CONTINUES. LTAC MAY BE NEEDED HE IS FRAIL AND SLOW TO RECOVER. OR WE CAN PLACE HIM IN REHAB HERE WHEN STABLE. HE IS OFF STEROIDS DR. VEGAS MODIFIED ANTIBIOTICS. LOVENOX REDUCED HE WILL NEED LESS AND PLATELTES ARE LOWER. Qualifiers: Chronicity: acute Respiratory failure complication: hypoxia and hypercapnia Qualified Code(s): J96.01 - Acute respiratory failure with hypoxia; J96.02 - Acute respiratory failure with hypercapnia
[2020-11-15] MEDS: IPRATROPIUM BROM 0.5MG/2.5ML NEB SCH ×4 (01:10→19:35)
[2020-11-15] MEDS: LEVALBUTEROL 1.25 MG/3 ML NEB NEB SCH ×4 (01:10→19:35)
[2020-11-15] MEDS ORDERED: IPRATROPIUM BROM 0.5MG/2.5ML ONE ×4 (01:25→19:49)
[2020-11-15] MEDS ORDERED: LEVALBUTEROL 1.25 MG/3 ML NEB ONE ×4 (01:25→19:49)
[2020-11-15] MEDS: LACTOBACILLUS/ACIDOPHILUS TAB PO SCH ×3 (04:09→20:36)
[2020-11-15 05:05] LABS: Arterial Blood Carboxyhemoglob 1.4 % (0-1.5)
[2020-11-15 05:40] LABS: BUN Blood Urea Nitrogen 25 mg/dL (7-18); Bicarbonate 29 mmol/L (21-32); Glucose Level 93 mg/dL (74-106); Magnesium 2.1 mg/dL (1.8-2.4); Phosphorus 2.2 mg/dL (2.5-4.9); Potassium 3.9 mmol/L (3.5-5.1); Sodium Level 145 mmol/L (136-145)
[2020-11-15] MEDS: OXACILLIN SODIUM IVPB SCH ×4 (05:45→23:53)
[2020-11-15] MEDS: NA CHLORIDE 0.9% IVPB SCH ×4 (05:45→23:53)
[2020-11-15] MEDS: Ringers Lactate 1,000 ML IV SCH (05:46)
[2020-11-15] MEDS ORDERED: Ringers Lactate 1,000 ML IV ONE (05:57)
--- NOTE | 2020-11-15 07:56 | RAD REPORT ---
EXAM DESCRIPTION: [facility] Single View11/15/2020 5:03 am CLINICAL HISTORY: Chest pain COMPARISON: November 14, 2020 FINDINGS: Endotracheal tube has tip well above the gibson. Nasogastric tube is coiled within the proximal stomach. Partial resolution in the left upper lobe opacities. No additional significant change IMPRESSION: Partial resolution in a left pneumonia
[2020-11-15] MEDS ORDERED: POTASSIUM PHOS IN 0.9 % NACL 15 MMOL/250 ML BAG IV ONE (08:00)
[2020-11-15] MEDS: APIXABAN 5 MG TABLET FT SCH ×2 (08:06→20:36)
[2020-11-15] MEDS: ZINC SULFATE 220 MG CAP PO SCH (08:06)
[2020-11-15] MEDS: THIAMINE HCL 100 MG TABLET PO SCH ×2 (08:06→20:36)
[2020-11-15] MEDS: FAMOTIDINE 20 MG/2 ML VIAL IV SCH ×2 (08:06→20:36)
[2020-11-15] MEDS: VITAMIN D 1000 UNIT TAB PO SCH (08:06)
[2020-11-15] MEDS ORDERED: APIXABAN 5 MG TABLET ONE ×2 (08:09→20:47)
[2020-11-15] MEDS ORDERED: VITAMIN D 1000 UNIT TAB ONE (08:09)
[2020-11-15] MEDS ORDERED: THIAMINE HCL 100 MG TABLET ONE ×2 (08:09→20:47)
[2020-11-15] MEDS ORDERED: FAMOTIDINE 20 MG/2 ML VIAL IV ONE ×2 (08:10→20:48)
[2020-11-15] MEDS ORDERED: ZINC SULFATE 220 MG CAP ONE (08:10)
[2020-11-15] MEDS: LORazepam 2 MG/ML VIAL IV PRN ×2 (08:35→12:02)
[2020-11-15] MEDS ORDERED: LORazepam 2 MG/ML VIAL ONE ×2 (08:50→12:16)
[2020-11-15] MEDS: VANCOMYCIN/NS 1 gm 1 GM/250 ML BAG IVPB SCH (09:07)
--- NOTE | 2020-11-15 09:30 | RAD REPORT ---
EXAM DESCRIPTION: Aman Single View11/15/2020 9:21 am CLINICAL HISTORY: Device placement orogastric tube placement IMPRESSION: An orogastric tube has been placed. The tip lies within the distal stomach.
--- NOTE | 2020-11-15 13:09 | P.PN ---
Subjective Date of Service: 11/15/20 Chief Complaint: Respiratory failure s Subjective: No new changes MR. NADINO IS VERY WEAK, STILL NEEDS BIPAP FOR OXYGENATION. HIS OXYGEN DROPS LOW WITH NASAL CANULA. HE IS NOT EATING MUCH AND SO IS ON LEROY FEEDING. HE BECAME SEVERELY HYPOXIC THIS AM AND HAD TO BE INTUBATED. BRITTANY HAS SEVERE COPD. GOT WORSE AND HAD TO BE INTUBATED. HE GOT WORSE DESPITE BEING ON MERREM AND VANCOMYCIN . DR. VEGAS CHANGED TO ANCEF HE HAS STAPH FROM SPUTUM THAT IS NOT MRSA HE ALSO WANTS TO STOP MERREM. INTUBATED, WEAK, BP IS STABLE. FOLLOWS COMMANDS. STILL VERY WEAK NOT ABLE TO BREATH ON HIS OWN COPIOUS SECRETIONS PER ET TUBE. VERY POOR CONDITION WITH SEVERE COPD. R ARM SWELLING. Physical Examination - Vital Signs Temperature: 97.7 F Blood Pressure: 91/67 Pulse: 91 Respirations: 20 Pulse Ox (%): 94 - Physical Exam General: Cachectic, Mild distress, Moderate distress HEENT: Atraumatic, PERRLA, EOMI Neck: Supple, JVD not distended Respiratory: Clear to auscultation bilaterally, Normal air movement Cardiovascular: Regular rate/rhythm, Normal S1 S2 Gastrointestinal: Normal bowel sounds, No tenderness Musculoskeletal: No tenderness Integumentary: No rashes Neurological: Normal speech, Normal tone, Normal affect Lymphatics: No axilla or inguinal lymphadenopathy - Studies Medications List Reviewed: Yes Assessment And Plan - Current Problems (Diagnosis) (1) Bacterial pneumonia Current Visit: Yes Status: Acute Plan: . PROGNOSIS GUARDED. CALLED . REPIRATORY FAILURE. BIPAP PRN. HE IS ON THE BEST ANTIBIOTIC COMBINATION- VANCOMYCIN AND MERREM. HE HAS SEVERE COPD AND SO RECOVERY IS POOR. REFER TO LTAC. SEVERE CONDITION. HE HAS VERY POOR LUNG FUNCTION BEFORE THE PNEUMONIA. HE IS NOT ABLE TO RECOVER WITH THE SMALL AMOUNT OF FUNCTIONING LUNGS HE HAS TALKED TO . HE WILL NEED TO GO TO LTAC. NOT GETTING BETTER. DR. VEGAS MANAGING THIS. (2) COPD (chronic obstructive pulmonary disease) Current Visit: Yes Status: Chronic Plan: NEBULIZER WILL AVOID STEROIDS HE IS NOT SHOWING ANY EXACERBATION. 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 WILL REDO X RAY IN A MONTH (4) Transient atrial fibrillation Current Visit: Yes Status: Acute Plan: DR. RICO HAS PLACED HIM ON AMIODARONE DRIP (5) Septic shock Current Visit: Yes Status: Acute Plan: ABOVE FOLLOW PROTOCOL IV FLUIDS. CHANGE TO RL. (6) Respiratory failure Current Visit: Yes Status: Acute Plan: HE IS VERY WEAK AND FATIGUED. HYPOXIA CONTINUES. LTAC MAY BE NEEDED HE IS FRAIL AND SLOW TO RECOVER. OR WE CAN PLACE HIM IN REHAB HERE WHEN STABLE. HE IS OFF STEROIDS DR. VEGAS MODIFIED ANTIBIOTICS. LOVENOX REDUCED HE WILL NEED LESS AND PLATELTES ARE LOWER. Qualifiers: Chronicity: acute Respiratory failure complication: hypoxia and hypercapnia Qualified Code(s): J96.01 - Acute respiratory failure with hypoxia; J96.02 - Acute respiratory failure with hypercapnia (7) Localized swelling of right upper extremity Current Visit: Yes Status: Acute Plan: SUP VENOUS THROMBOSIS ELUQIS STARTED. HE WILL NEED IT FOR AFIB ALSO.
--- NOTE | 2020-11-15 17:07 | P.PN ---
Subjective Date of Service: 11/15/20 Chief Complaint: Respiratory failure Patient is improving tolerating tube feeds still has copious secretions minimal oxygen requirements borderline low blood pressure Physical Examination - Vital Signs Temperature: 97.4 F Blood Pressure: 89/64 Pulse: 89 Respirations: 16 Pulse Ox (%): 96 - Studies Medications List Reviewed: Yes Assessment & Plan - Problems (Diagnosis) (1) Respiratory failure Current Visit: Yes Status: Acute Plan: Respiratory failure he is doing better he is more alert copious secretions all fully can try and wean him off from the ventilator tomorrow Dc vancomycin continue with oxacillin/and tube feeds Qualifiers: Chronicity: acute Respiratory failure complication: hypoxia and hypercapnia Qualified Code(s): J96.01 - Acute respiratory failure with hypoxia; J96.02 - Acute respiratory failure with hypercapnia
[2020-11-16] MEDS: IPRATROPIUM BROM 0.5MG/2.5ML NEB SCH ×4 (01:35→20:28)
[2020-11-16] MEDS: LEVALBUTEROL 1.25 MG/3 ML NEB NEB SCH ×4 (01:35→20:28)
[2020-11-16] MEDS ORDERED: LEVALBUTEROL 1.25 MG/3 ML NEB ONE ×4 (01:49→20:44)
[2020-11-16] MEDS ORDERED: IPRATROPIUM BROM 0.5MG/2.5ML ONE ×4 (01:50→20:43)
[2020-11-16] MEDS: LACTOBACILLUS/ACIDOPHILUS TAB PO SCH ×3 (04:23→20:26)
[2020-11-16] MEDS: OXACILLIN SODIUM IVPB SCH ×3 (05:37→17:02)
[2020-11-16] MEDS: NA CHLORIDE 0.9% IVPB SCH ×3 (05:37→17:02)
[2020-11-16 07:54] LABS: Absolute Lymphocytes (CBC) 1.3 K/uL (0.7-4.9); Basophils % 0.5 % (0-1.3); Hematocrit 31.4 % (39.6-49.0); Lymphocytes % 8.7 % (15.3-44.8); MPV 8.4 fL (7.6-11.3); RBC Red Blood Cell Count 3.34 M/uL (4.33-5.43)
[2020-11-16] MEDS: VITAMIN D 1000 UNIT TAB PO SCH (08:44)
[2020-11-16] MEDS: FAMOTIDINE 20 MG/2 ML VIAL IV SCH ×2 (08:44→20:27)
[2020-11-16] MEDS: ZINC SULFATE 220 MG CAP PO SCH (08:44)
[2020-11-16] MEDS: APIXABAN 5 MG TABLET FT SCH ×2 (08:44→20:27)
[2020-11-16] MEDS: THIAMINE HCL 100 MG TABLET PO SCH ×2 (08:44→20:27)
[2020-11-16] MEDS ORDERED: THIAMINE HCL 100 MG TABLET ONE ×2 (08:57→20:29)
[2020-11-16] MEDS ORDERED: VITAMIN D 1000 UNIT TAB ONE (08:57)
[2020-11-16] MEDS ORDERED: FAMOTIDINE 20 MG/2 ML VIAL IV ONE ×2 (08:57→20:29)
[2020-11-16] MEDS ORDERED: ZINC SULFATE 220 MG CAP ONE (08:57)
[2020-11-16] MEDS ORDERED: APIXABAN 5 MG TABLET ONE ×2 (08:57→20:29)
--- NOTE | 2020-11-16 12:29 | P.PN ---
Subjective Date of Service: 11/16/20 Chief Complaint: Respiratory failure Patient was doing better this morning alert cooperative responsive wire to be extubated over he had not tolerated weaning trial awaiting LTAC patient still has copious secretions Review of Systems is unable to be obtained Physical Examination - Vital Signs Temperature: 98.3 F Blood Pressure: 127/85 Pulse: 97 Respirations: 30 Pulse Ox (%): 96 - Physical Exam General: Alert, Cooperative Respiratory: Clear to auscultation bilaterally, Diminished Cardiovascular: No edema, Regular rate/rhythm - Studies Medications List Reviewed: Yes Assessment & Plan - Problems (Diagnosis) (1) Respiratory failure Current Visit: Yes Status: Acute Plan: Respiratory failure patient failed weaning trial awaiting transfer to an LTAC patient is stable white count is minimally elevated he is on minimal oxygen blood pressure is stable no change in therapy Qualifiers: Chronicity: acute Respiratory failure complication: hypoxia and hypercapnia Qualified Code(s): J96.01 - Acute respiratory failure with hypoxia; J96.02 - Acute respiratory failure with hypercapnia
[2020-11-16] MEDS: LORazepam 2 MG/ML VIAL IV PRN (16:35)
[2020-11-16] MEDS ORDERED: LORazepam 2 MG/ML VIAL ONE (16:49)
--- NOTE | 2020-11-16 21:57 | P.PN ---
Subjective Date of Service: 11/16/20 Chief Complaint: Respiratory failure Subjective: Improving MR. ANDINO IS VERY WEAK, STILL NEEDS BIPAP FOR OXYGENATION. HIS OXYGEN DROPS LOW WITH NASAL CANULA. HE IS NOT EATING MUCH AND SO IS ON LEROY FEEDING. HE BECAME SEVERELY HYPOXIC THIS AM AND HAD TO BE INTUBATED. BRITTANY HAS SEVERE COPD. GOT WORSE AND HAD TO BE INTUBATED. HE GOT WORSE DESPITE BEING ON MERREM AND VANCOMYCIN . DR. VEGAS CHANGED TO ANCEF HE HAS STAPH FROM SPUTUM THAT IS NOT MRSA HE ALSO WANTS TO STOP MERREM. INTUBATED, WEAK, BP IS STABLE. FOLLOWS COMMANDS. STILL VERY WEAK NOT ABLE TO BREATH ON HIS OWN COPIOUS SECRETIONS PER ET TUBE. VERY POOR CONDITION WITH SEVERE COPD. R ARM SWELLING. STABLE BUT EXTUBATION FAILED YESTERDAY. Physical Examination - Vital Signs Temperature: 98.0 F Blood Pressure: 106/61 Pulse: 90 Respirations: 15 Pulse Ox (%): 93 - Physical Exam General: Cachectic, Moderate distress, Other (ON VENT MACHINE.) HEENT: Atraumatic, PERRLA, EOMI Neck: Supple, JVD not distended Respiratory: Clear to auscultation bilaterally, Normal air movement Cardiovascular: Regular rate/rhythm, Normal S1 S2, Edema (R ARM.) Gastrointestinal: Normal bowel sounds, No tenderness Musculoskeletal: No tenderness Integumentary: No rashes Neurological: Normal speech, Normal tone, Normal affect Lymphatics: No axilla or inguinal lymphadenopathy - Studies Medications List Reviewed: Yes Assessment And Plan - Current Problems (Diagnosis) (1) Bacterial pneumonia Current Visit: Yes Status: Acute Plan: . PROGNOSIS GUARDED. CALLED . REPIRATORY FAILURE. BIPAP PRN. HE IS ON THE BEST ANTIBIOTIC COMBINATION- VANCOMYCIN AND MERREM. HE HAS SEVERE COPD AND SO RECOVERY IS POOR. REFER TO LTAC. SEVERE CONDITION. HE HAS VERY POOR LUNG FUNCTION BEFORE THE PNEUMONIA. HE IS NOT ABLE TO RECOVER WITH THE SMALL AMOUNT OF FUNCTIONING LUNGS HE HAS TALKED TO . HE WILL NEED TO GO TO LTAC. NOT GETTING BETTER. DR. VEGAS MANAGING THIS. (2) COPD (chronic obstructive pulmonary disease) Current Visit: Yes Status: Chronic Plan: NEBULIZER WILL AVOID STEROIDS HE IS NOT SHOWING ANY EXACERBATION. END STAGE SEVERE HE IS NOT IMPROVING MOST OF HIS LUNGS IS POSSIBLY LOW OR NON FUNCTIONING FROM COPD. 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 WILL REDO X RAY IN A MONTH (4) Transient atrial fibrillation Current Visit: Yes Status: Acute Plan: DR. RICO HAS PLACED HIM ON AMIODARONE DRIP (5) Septic shock Current Visit: Yes Status: Acute Plan: ABOVE FOLLOW PROTOCOL IV FLUIDS. CHANGE TO RL. (6) Respiratory failure Current Visit: Yes Status: Acute Plan: HE IS VERY WEAK AND FATIGUED. HYPOXIA CONTINUES. LTAC MAY BE NEEDED HE IS FRAIL AND SLOW TO RECOVER. OR WE CAN PLACE HIM IN REHAB HERE WHEN STABLE. HE IS OFF STEROIDS DR. VEGAS MODIFIED ANTIBIOTICS. LOVENOX REDUCED HE WILL NEED LESS AND PLATELTES ARE LOWER. Qualifiers: Chronicity: acute Respiratory failure complication: hypoxia and hypercapnia Qualified Code(s): J96.01 - Acute respiratory failure with hypoxia; J96.02 - Acute respiratory failure with hypercapnia (7) Localized swelling of right upper extremity Current Visit: Yes Status: Acute Plan: SUP VENOUS THROMBOSIS ELUQIS STARTED. HE WILL NEED IT FOR AFIB ALSO.
[2020-11-17] MEDS: NA CHLORIDE 0.9% IVPB SCH ×3 (01:41→12:48)
[2020-11-17] MEDS: OXACILLIN SODIUM IVPB SCH ×3 (01:41→12:48)
[2020-11-17] MEDS: IPRATROPIUM BROM 0.5MG/2.5ML NEB SCH ×3 (03:00→14:45)
[2020-11-17] MEDS: LEVALBUTEROL 1.25 MG/3 ML NEB NEB SCH ×3 (03:00→14:45)
[2020-11-17] MEDS ORDERED: LEVALBUTEROL 1.25 MG/3 ML NEB ONE ×3 (03:20→14:56)
[2020-11-17] MEDS ORDERED: IPRATROPIUM BROM 0.5MG/2.5ML ONE ×4 (03:20→14:56)
[2020-11-17] MEDS: LACTOBACILLUS/ACIDOPHILUS TAB PO SCH ×2 (04:00→12:48)
[2020-11-17 05:45] LABS: BUN Blood Urea Nitrogen 21 mg/dL (7-18); Bicarbonate 31 mmol/L (21-32); Glucose Level 80 mg/dL (74-106); Magnesium 1.9 mg/dL (1.8-2.4); Potassium 4.1 mmol/L (3.5-5.1); Sodium Level 147 mmol/L (136-145)
[2020-11-17 05:46] LABS: Absolute Lymphocytes (CBC) 1.3 K/uL (0.7-4.9); Basophils % 0.7 % (0-1.3); Hematocrit 29.7 % (39.6-49.0); RBC Red Blood Cell Count 3.13 M/uL (4.33-5.43)
--- NOTE | 2020-11-17 07:26 | RAD REPORT ---
EXAM DESCRIPTION: RAD - Chest Single View - 11/17/2020 6:19 am CLINICAL HISTORY: Respiratory failure COMPARISON: November 15 TECHNIQUE: AP portable chest image was obtained 11/17/2020 6:19 am . FINDINGS: ET tube, enteric tube and right-sided PICC line are unchanged. Bilateral interstitial and alveolar opacities have not changed. No change to the biapical cystic cavi ties. Heart and vasculature are normal. No measurable pleural effusion and no pneumothorax. No acute bony abnormality seen. No acute aortic findings suspected. IMPRESSION: Stable chest from November 15
[2020-11-17] MEDS ORDERED: APIXABAN 5 MG TABLET PO SCH (09:00)
[2020-11-17] MEDS ORDERED: APIXABAN 5 MG TABLET FT SCH (09:00)
[2020-11-17] MEDS: VITAMIN D 1000 UNIT TAB PO SCH (09:31)
[2020-11-17] MEDS: THIAMINE HCL 100 MG TABLET PO SCH (09:31)
[2020-11-17] MEDS: FAMOTIDINE 20 MG/2 ML VIAL IV SCH (09:32)
[2020-11-17] MEDS: ZINC SULFATE 220 MG CAP PO SCH (09:32)
[2020-11-17] MEDS ORDERED: VITAMIN D 1000 UNIT TAB ONE (09:45)
[2020-11-17] MEDS ORDERED: THIAMINE HCL 100 MG TABLET ONE (09:45)
[2020-11-17] MEDS ORDERED: FAMOTIDINE 20 MG/2 ML VIAL IV ONE (09:45)
[2020-11-17] MEDS ORDERED: APIXABAN 5 MG TABLET ONE (09:45)
[2020-11-17] MEDS ORDERED: ZINC SULFATE 220 MG CAP ONE (09:45)
--- NOTE | 2020-11-17 13:42 | P.PN ---
Subjective Date of Service: 11/17/20 Chief Complaint: Respiratory failure No change in patient's condition he is still alert responsive cooperative with copious secretions minimal oxygen Review of Systems is unable to be obtained Physical Examination - Vital Signs Temperature: 98.6 F Blood Pressure: 116/84 Pulse: 95 Respirations: 21 Pulse Ox (%): 93 - Physical Exam General: Alert, Cooperative Respiratory: Diminished, Expiratory wheezes Cardiovascular: No edema, Regular rate/rhythm - Studies Medications List Reviewed: Yes Assessment & Plan - Problems (Diagnosis) (1) Respiratory failure Current Visit: Yes Status: Acute Plan: Respiratory failure failure to wean yesterday will try again repeat sputum cultures white count is declined significantly patient is on minimal oxygen scheduled to go to LTAC prognosis very poor here significant bullous lung disease vital signs stable stable for transfer mild hypernatremia Qualifiers: Chronicity: acute Respiratory failure complication: hypoxia and hypercapnia Qualified Code(s): J96.01 - Acute respiratory failure with hypoxia; J96.02 - Acute respiratory failure with hypercapnia
--- NOTE | 2020-11-17 14:28 | P.DS ---
Admission Date: 11/04/20 Discharge Date: 11/17/20 Disposition: LONGTERM ACUTE CARE FACILITY Discharge Condition: SERIOUS Reason for Admission: Respiratory failure - Problems (1) Bacterial pneumonia Current Visit: Yes Status: Acute (2) COPD (chronic obstructive pulmonary disease) Current Visit: Yes Status: Chronic Qualifiers: COPD type: emphysema (3) Former smoker Current Visit: Yes Status: Chronic (4) Transient atrial fibrillation Current Visit: Yes Status: Acute (5) Septic shock Current Visit: Yes Status: Acute (6) Respiratory failure Current Visit: Yes Status: Acute Qualifiers: Chronicity: acute Respiratory failure complication: hypoxia and hypercapnia Qualified Code(s): J96.01 - Acute respiratory failure with hypoxia; J96.02 - Acute respiratory failure with hypercapnia (7) Localized swelling of right upper extremity Current Visit: Yes Status: Acute Brief History of Present Illness: BRITTANY CALLED ME YESTERDAY HE WAS WEAK AND NOT ABLE TO STAY AWAKE. I ASKED HIM TO COME TO ER HE MAY HAVE INFECTION AND LOW BP. HE DID HAVE A LARGE L SIDE PNEUMONIA, COPD AND HYPOTENSION. HE WAS GIVEN IV FLUIDS TO BRING UP BP IN ER AND I ASKED THEM TO GIVE DUAL COVERAGE WITH VANCOMYCIN AND ZOSYN. HE HAS IMPROVED. HE DID NOT SLEEP AT NIGHT. HE HAD SHORT RUN OF A FIB AT NIGHT AND HE IS ALREADY ON ANTICOAGULATION, HE IS BACK IN SINUS RHYTHM. Hospital Course: PATIENT HAS BEEN IN ICU FOR RESPIRATORY FAILURE WITH SEVERE COPD AND BACTERIAL PNEUMONIA. HE HAS FAILED EXTUBATION PROTOCOL. HE IS NOW GIONG TO LTAC FOR FURTHER CARE. Vital Signs/Physical Exam: Temp Pulse Resp BP Pulse Ox 98.6 F 95 H 21 H 116/84 93 11/17/20 13:41 11/17/20 13:41 11/17/20 13:41 11/17/20 13:41 11/17/20 13:41 Laboratory Data at Discharge: WBC 12.6 K/uL (4.3-10.9) H D 11/17/20 05:02 Hgb 9.5 g/dL (13.6-17.9) L 11/17/20 05:02 Hct 29.7 % (39.6-49.0) L 11/17/20 05:02 Plt Count 232 K/uL (152-406) 11/17/20 05:02 PT 12.7 SECONDS (9.5-12.5) H 11/04/20 16:24 INR 1.08 11/04/20 16:24 APTT 30.4 SECONDS (24.3-36.9) 11/04/20 16:24 Sodium 147 mmol/L (136-145) H 11/17/20 05:02 Potassium 4.1 mmol/L (3.5-5.1) 11/17/20 05:02 BUN 21 mg/dL (7-18) H 11/17/20 05:02 Creatinine 0.57 mg/dL (0.55-1.3) 11/17/20 05:02 Glucose 80 mg/dL (74-106) 11/17/20 05:02 Phosphorus 3.0 mg/dL (2.5-4.9) 11/17/20 05:02 Magnesium 1.9 mg/dL (1.8-2.4) 11/17/20 05:02 Total Bilirubin 0.2 mg/dL (0.2-1.0) 11/11/20 07:54 AST 15 U/L (15-37) 11/11/20 07:54 ALT < 6 U/L (12-78) L 11/11/20 07:54 Alkaline Phosphatase 77 U/L (45-117) 11/11/20 07:54 Home Medications: Fluticasone/Umeclidin/Vilanter [Trelegy Ellipta 100-62.5-25] 1 puff IH DAILY 11/05/20 Followup: Marek Aranda MD [Primary Care Provider] -
[2020-11-17 17:26] VITALS: TEMP 98.7
[2020-11-17 17:35] VITALS: O2SAT 100
[2020-11-17 19:11] VITALS: BP 113/70
--- NOTE | 2020-11-17 21:03 | P.OP ---
Date of Service: 11/11/20 (Intubation) Findings and Operative Technique Ptis65 yrs age AW septic shock and resp failure. Pts condition deteriorated and had to be emergently intubated with sixe 7 ET tube and using 60mg of propotol. Vocal cords visualized. Intubated successful on first attempt. CXRY ordered
== END 2020-11-17 18:40 | DRG 870 ==
LOC: ER 14:57 → ERHOLD 20:09 → 2ND 22:23 → ERHOLD 11-07 06:23
PROVIDERS: ADMIT Internal Medicine; ATTEND Internal Medicine
PROC: 02HV33Z Insertion of Infusion Device into Superior Vena Cava, Percutaneous Approach (ICD-10-PCS; 2020-11-07)
PROC: 5A1955Z Respiratory Ventilation, Greater than 96 Consecutive Hours (ICD-10-PCS; principal; 2020-11-11)
PROC: 0BH17EZ Insertion of Endotracheal Airway into Trachea, Via Natural or Artificial Opening (ICD-10-PCS; 2020-11-11)
DX: A41.01 Sepsis due to Methicillin susceptible Staphylococcus aureus (principal); R65.21 Severe sepsis with septic shock; J15.9 Unspecified bacterial pneumonia; J96.01 Acute respiratory failure with hypoxia; J96.02 Acute respiratory failure with hypercapnia; R64 Cachexia; Z68.1 Body mass index [BMI] 19.9 or less, adult; E87.1 Hypo-osmolality and hyponatremia; I24.8 Other forms of acute ischemic heart disease; I48.92 Unspecified atrial flutter; I82.611 Acute embolism and thrombosis of superficial veins of right upper extremity; J43.9 Emphysema, unspecified; I49.9 Cardiac arrhythmia, unspecified; E86.0 Dehydration; I48.0 Paroxysmal atrial fibrillation; E87.6 Hypokalemia; Z79.899 Other long term (current) drug therapy; Z87.891 Personal history of nicotine dependence; Z20.822 Contact with and (suspected) exposure to COVID-19
CPT/HCPCS: 0240U; 36415; 71045; 71260; 74018; 80048; 80076; 80202; 81015; 82024; 82533; 82565; 82728; 82805; 82947; 83605; 83735; 84100; 84132; 84145; 84484; 85014; 85018; 85025; 85610; 85730; 86140; 87015; 87040; 87070; 87077; 87081; 87116; 87186; 87205; 87206; 87324; 87449; 88108; 88305; 93005; 93306; 93970; 93971; 94002; 94003; 94640; 94660; 94760; 96372; 99285; J0282; J0330; J0690; J0834; J1650; J1720; J2185; J2543; J2700; J2704; J3370; J3411; J3475; J3480; J7030; J7040; J7050; J7060; J7120; Q9967